=== PATIENT | female | born 1960 | race Caucasian/White ===

== ENCOUNTER 2020-10-14 09:17 | Outpatient (REF) | payer BC, SELFPAY ==
--- NOTE | ~2020-10-14 | XR_ITS ---
EXAMINATION: XR foot LT min 3V, XR foot RT min 3V CLINICAL INFORMATION: Rheumatoid arthritis. COMPARISON: None. TECHNIQUE: AP, lateral and oblique views of each foot. FINDINGS: Left foot: Joint spaces are maintained. No erosions are demonstrated. There is a small benign exostosis on the medial aspect of the distal phalanx the great toe. Bone density is normal. No acute abnormality. Right foot: Mild degenerative changes are present at the first metatarsal phalangeal joint. Joint spaces are otherwise well-maintained. No erosions. A small benign exostosis is present on the medial aspect of the distal phalanx of the great toe. No acute abnormality. XR/XR foot RT min 3V IMPRESSION: No erosive changes. Mild degenerative changes at the right first metatarsal phalangeal joint. Small exostoses of the distal phalanges of the great toes.
--- NOTE | ~2020-10-14 | XR_ITS ---
EXAMINATION: XR foot LT min 3V, XR foot RT min 3V CLINICAL INFORMATION: Rheumatoid arthritis. COMPARISON: None. TECHNIQUE: AP, lateral and oblique views of each foot. FINDINGS: Left foot: Joint spaces are maintained. No erosions are demonstrated. There is a small benign exostosis on the medial aspect of the distal phalanx the great toe. Bone density is normal. No acute abnormality. Right foot: Mild degenerative changes are present at the first metatarsal phalangeal joint. Joint spaces are otherwise well-maintained. No erosions. A small benign exostosis is present on the medial aspect of the distal phalanx of the great toe. No acute abnormality. XR/XR foot LT min 3V IMPRESSION: No erosive changes. Mild degenerative changes at the right first metatarsal phalangeal joint. Small exostoses of the distal phalanges of the great toes.
[2020-10-14 09:48] LABS: MANUAL DIFF FLAG NO
[2020-10-14 10:05] LABS: Basophils Percent Auto 0.5 % (0-2); Eosinophils Absolute Auto 0.3 X10*3/uL (0.0-0.4); Eosinophils Percent Auto 4.9 % (0-4); Imm Gran Abs Auto 0.02 X10*3/uL (0.00-0.03); Imm Gran Pct Auto 0.3 % (0.0-0.4); Lymphocytes Absolute Auto 1.7 X10*3/uL (1.2-4.9); Lymphocytes Percent Auto 28.2 % (20-40); Mean Corpuscular HGB Conc 32.5 g/dl (31.0-35.0); Mean Corpuscular Hemoglobin 28.9 pg (27.0-33.0); Mean Corpuscular Volume 88.9 fL (80-98); Mean Platelet Volume 10.7 fL (9.4-12.3); Monocytes Absolute Auto 0.6 X10*3/uL (0.1-1.2); Monocytes Percent Auto 9.6 % (2-11); Neutrophils Absolute Auto 3.5 X10*3/uL (2.0-8.3); Neutrophils Percent Auto 56.5 % (45-73); Platelet Count 269 X10*3/uL (160-400); Red Cell Distribution Width 12.6 % (11.0-16.0); White Blood Count 6.1 X10*3/uL (4.8-10.8)
[2020-10-14 10:23] LABS: Alanine Aminotransferase 20 U/L (0-31); Albumin Level 4.6 g/dL (3.5-5.0); Alkaline Phosphatase 71 U/L (39-117); Anion Gap 14 (12-20); Aspartate Amino Transferase 21 U/L (5-31); Bilirubin Total 0.6 mg/dL (0.0-1.0); Blood Urea Nitrogen 17 mg/dL (9-16); C Reactive Protein 0.03 mg/dL (< or = 0.50); Calcium 10.2 mg/dL (8.4-10.2); Carbon Dioxide 28 mmol/L (22-29); Chloride 105 mmol/L (96-108); Cholesterol 225 mg/dL; Estimated Glomerular Filt Rate > 60; Glucose Random 82 mg/dL (60-115); HDL Cholesterol 89 mg/dL; LDL Cholesterol Calculated 125 mg/dl; Potassium 4.8 mmol/L (3.3-5.1); Rheumatoid Factor < 15.0 IU/mL (<15.0); Sodium 142 mmol/L (135-145); Total Protein 7.3 g/dL (6.5-8.0); Triglycerides 58 mg/dL
[2020-10-14 10:33] LABS: Thyroid Stimulating Hormone 0.88 uIU/mL (0.32-4.0); Vitamin D 25-OH Total 23.1 ng/mL (>30)
[2020-10-14 10:52] LABS: Erythrocyte Sedimentation Rate 7 MM/HR (0-20)
[2020-10-16 08:41] LABS: Folate 18.3 ng/mL (> or = 4.0); Vitamin B12 407 pg/mL (200-900)
[2020-10-17 13:42] LABS: ANA Pattern 2 Nuclear, Homogeneous; Anti Nuclear Antibody Pattern Nuclear, Centromere; Anti Nuclear Antibody Screen POSITIVE (NEGATIVE)
== END 2020-10-14 09:18 | disposition home or self-care (01) ==
LOC: HO.LAB 09:17
PROVIDERS: PCP Internal Medicine; Visit Provider Internal Medicine
DX: K21.9 Gastro-esophageal reflux disease without esophagitis (principal); M79.89 Other specified soft tissue disorders; R79.89 Other specified abnormal findings of blood chemistry; M85.89 Other specified disorders of bone density and structure, multiple sites
CPT/HCPCS: 36415; 73630; 80053; 80061; 82306; 82607; 82746; 84443; 85025; 85652; 86038; 86039; 86140; 86431

== ENCOUNTER → 2020-10-25 11:23 | Outpatient (BNVA) | payer BC, SELFPAY | PROVIDERS: PCP Internal Medicine; Visit Provider Student in an Organized Health Care Education/Training Program ==

== ENCOUNTER 2020-10-27 13:01 | Outpatient (REF) | payer BC, SELFPAY ==
[2020-10-27 13:30] LABS: MANUAL DIFF FLAG NO
[2020-10-27 13:36] LABS: Basophils Percent Auto 0.3 % (0-2); Eosinophils Absolute Auto 0.1 X10*3/uL (0.0-0.4); Eosinophils Percent Auto 1.8 % (0-4); Hematocrit 38.3 % (37-47); Hemoglobin 12.3 g/dl (12.0-16.0); Imm Gran Abs Auto 0.02 X10*3/uL (0.00-0.03); Imm Gran Pct Auto 0.3 % (0.0-0.4); Lymphocytes Percent Auto 25.8 % (20-40); Mean Corpuscular HGB Conc 32.1 g/dl (31.0-35.0); Mean Corpuscular Hemoglobin 28.7 pg (27.0-33.0); Mean Corpuscular Volume 89.3 fL (80-98); Mean Platelet Volume 10.4 fL (9.4-12.3); Monocytes Absolute Auto 0.5 X10*3/uL (0.1-1.2); Monocytes Percent Auto 5.9 % (2-11); Neutrophils Absolute Auto 5.1 X10*3/uL (2.0-8.3); Neutrophils Percent Auto 65.9 % (45-73); Platelet Count 260 X10*3/uL (160-400); Red Blood Count 4.29 X10*6/uL (4.20-5.50); Red Cell Distribution Width 12.6 % (11.0-16.0); White Blood Count 7.7 X10*3/uL (4.8-10.8)
[2020-10-27 13:52] LABS: Alanine Aminotransferase 17 U/L (0-31); Albumin Level 4.6 g/dL (3.5-5.0); Alkaline Phosphatase 64 U/L (39-117); Anion Gap 13 (12-20); Aspartate Amino Transferase 18 U/L (5-31); Bilirubin Total 0.7 mg/dL (0.0-1.0); Blood Urea Nitrogen 11 mg/dL (9-16); C Reactive Protein 0.02 mg/dL (< or = 0.50); Calcium 9.8 mg/dL (8.4-10.2); Carbon Dioxide 27 mmol/L (22-29); Chloride 101 mmol/L (96-108); Estimated Glomerular Filt Rate > 60; Glucose Random 142 mg/dL (60-115); Potassium 4.1 mmol/L (3.3-5.1); Sodium 137 mmol/L (135-145); Total Protein 7.3 g/dL (6.5-8.0)
[2020-10-27 14:33] LABS: Erythrocyte Sedimentation Rate 4 MM/HR (0-20)
[2020-10-27 15:54] LABS: Glucose Urine UA NEG (NEG); Leukocyte Esterase Urine NEG (NEG); Nitrite Urine NEG (NEG); Specific Gravity - Urine <= 1.005 (1.005-1.025); Urine Blood 2+ (NEG); Urine Ketones NEG (NEG); Urine Protein NEG (NEG-TRACE)
[2020-10-27 15:59] LABS: Appearance Urine CLEAR; Color Urine YELLOW
[2020-10-27 16:17] LABS: Urine Talc Crystals TRACE /LPF; WBC Urine 0-2 /HPF (0-4)
[2020-10-28 07:06] LABS: Thyroglobulin Antibodies <1 IU/mL (< or = 1); Thyroid Peroxidase Antibodies 2 IU/mL (<9)
[2020-10-31 10:42] LABS: Complement C3 71 mg/dL (83-193)
[2020-10-31 16:02] LABS: Anti DNA DS Antibody 1 IU/mL; Antibody to SS-A Antigen <1.0 NEG AI (<1.0 NEG); Antibody to SS-B Antigen <1.0 NEG AI (<1.0 NEG); PTT (LAC) Screen 26 sec (< OR = 40); SM/Ribonucleoprotein Ab <1.0 NEG AI (<1.0 NEG); Scleroderma 70 Antibody <1.0 NEG AI (<1.0 NEG); Smith Protein <1.0 NEG AI (<1.0 NEG)
[2020-11-02 16:57] LABS: Cyclic Citrullinated Peptide <16 UNITS
== END 2020-10-27 13:02 | disposition home or self-care (01) ==
LOC: HO.LAB 13:01
PROVIDERS: PCP Internal Medicine; Visit Provider Student in an Organized Health Care Education/Training Program
DX: R76.8 Other specified abnormal immunological findings in serum (principal)
CPT/HCPCS: 36415; 80053; 81001; 85025; 85597; 85613; 85652; 85730; 86140; 86160; 86200; 86225; 86235; 86376; 86800

== ENCOUNTER → 2020-11-14 15:18 | Outpatient (BNVA) | payer BC, SELFPAY | PROVIDERS: PCP Internal Medicine; Visit Provider Student in an Organized Health Care Education/Training Program ==

== ENCOUNTER 2020-11-21 12:57 | Outpatient (REF) | payer BC, SELFPAY ==
--- NOTE | ~2020-11-21 | MM_ITS ---
EXAMINATION: BONE DENSITOMETRY CLINICAL INDICATION: Other specified disorders of bone density and structure. COMPARISON: Previous BD dated 09/26/2017 and baseline BD dated 09/21/2010. TECHNIQUE: Using a [employer] DXA System (software version: 13.1) manufactured by [employer], dual-energy x-ray absorptiometry was performed of the lumbar spine and left hip. The images are of good technical quality. Summary results are attached. FINDINGS: AP SPINE L1-L4: Current: BMD 1.035 g/cm2, Z-score 0.6, T-score -1.2, osteopenia, 0.8% increase from previous, 10.2% decrease from baseline (<5% change is not significant). Prior: BMD 1.027 g/cm2. Baseline: BMD 1.152 g/cm2. LEFT FEMUR, NECK: Current: BMD 0.698 g/cm2, Z-score -0.8, T-score -2.4, osteopenia. Prior: BMD 0.720 g/cm2. Baseline: BMD 0.903 g/cm2. LEFT FEMUR, TOTAL: Current: BMD 0.809 g/cm2, Z-score -0.2, T-score -1.6, osteopenia, 5.7% decrease from previous, 17.4% decrease from baseline (<5% change is not significant). Prior: BMD 0.858 g/cm2. Baseline: BMD 0.980 g/cm2. IDENTIFIED RISK FACTORS: Low calcium intake, family history (parental hip fracture), menopause. HISTORY OF FRACTURE: None listed. MEDICATIONS: Calcium supplements or multivitamin, vitamin D. MM/XR DEXA axial skeleton IMPRESSION: 1. DIAGNOSIS: Osteopenia based on the lowest T-score value of -2.4 in the femoral neck applying World Health Organization criteria. 2. 10-YEAR FRACTURE RISK PREDICTION, FRAX: Major osteoporotic fracture (clinical spine, forearm, hip or shoulder) 19.9%. Hip fracture 2.3%. 3. Treatment Recommendations: NOF guidelines recommend consideration for treatment in postmenopausal women and men age 50 and older presenting with the following: -A hip or vertebral (clinical or morphometric) fracture. -T-score less than or equal to -2.5 at the femoral neck or spine after appropriate evaluation to exclude secondary causes. -Low bone mass at the hip or spine and a 10-year fracture probability by FRAX of greater than or equal to 3% for hip fracture or greater than or equal to 20% for major osteoporotic fracture based on the [place] adapted WHO algorithm. 4. Other Recommendations: All treatment decisions require clinical judgment and consideration of individual patient factors, including patient preferences, comorbidities, previous drug use, risk factors not captured in the FRAX model (e.g. frailty, falls, vitamin D deficiency, increased bone turnover, interval significant decline in bone density) and possible under or overestimation of fracture risk by FRAX. Additional medical evaluation for secondary cause of low bone mineral density may be appropriate. FUTURE SCAN RECOMMENDATION: People with diagnosed cases of osteoporosis or at high risk for fracture should have regular bone mineral density tests. For patients eligible for Medicare, routine testing is allowed once every 2 years. The testing frequency can be increased to one year for patients who have rapidly progressing disease, those who are receiving or discontinuing medical therapy to restore bone mass, or have additional risk factors.
--- NOTE | ~2020-11-21 | MM_ITS ---
EXAMINATION: MM SCREENING DIGITAL BREAST TOMOSYNTHESIS, BILATERAL CLINICAL INFORMATION: Screening. Asymptomatic. The lifetime risk of breast cancer based on the Tyrer-Cuzick Model is 5%. COMPARISON: Mammography: 04/27/2019, 09/26/2017, 07/15/2014 TECHNIQUE: Digital breast tomosynthesis is performed in both the craniocaudal and mediolateral oblique views along with computer-aided detection (CAD). Synthesized 2D images are generated from the tomosynthesis. FINDINGS: There are scattered areas of fibroglandular density (ACR BI-RADS breast composition Category b). There are no significant masses, abnormal calcifications, or other abnormalities. Parenchymal pattern is similar to prior exams. No significant changes. MM/MM tomosynthesis screening BI IMPRESSION: No mammographic evidence of malignancy. ASSESSMENT: BI-RADS 1: Negative RECOMMENDATION: Routine annual mammography screening. This patient's information was entered into a reminder system with a target due date for their next mammogram.
== END 2020-11-21 12:58 | disposition home or self-care (01) ==
LOC: HO.MAMMO 12:57
PROVIDERS: Visit Provider Internal Medicine
DX: Z12.31 Encounter for screening mammogram for malignant neoplasm of breast (principal); Z13.820 Encounter for screening for osteoporosis; M85.80 Other specified disorders of bone density and structure, unspecified site; E58 Dietary calcium deficiency; Z78.0 Asymptomatic menopausal state
CPT/HCPCS: 77063; 77067; 77080

== ENCOUNTER → 2021-01-08 11:26 | Outpatient (BNVA) | payer BC, SELFPAY | PROVIDERS: PCP Internal Medicine; Referring Provider Internal Medicine; Visit Provider Nurse Practitioner ==

== ENCOUNTER 2021-01-10 17:14 | Outpatient (REF) | payer BC, SELFPAY ==
--- NOTE | ~2021-01-10 | XR_ITS ---
EXAMINATION: XR THORACOLUMBAR SPINE CLINICAL INFORMATION: Dorsalgia COMPARISON: None TECHNIQUE: 3 views of the thoracic spine FINDINGS: No acute visible fracture or dislocation. Slight dextrocurvature of the midthoracic spine. Mild multilevel degenerative changes with disc space narrowing, osteophyte formation, facet arthropathy. Vertebral body heights and disc spaces are otherwise maintained. Posterior elements are intact. Paraspinal soft tissues are unremarkable. Visualized portions of the chest are unremarkable. XR/XR thoracic spine 2V IMPRESSION: 1. No acute visible fracture or dislocation. 2. Slight dextrocurvature of the midthoracic spine. 3. Mild multilevel degenerative changes.
== END 2021-01-10 17:15 | disposition home or self-care (01) ==
LOC: HO.XRAY 17:14
PROVIDERS: PCP Internal Medicine; Visit Provider Nurse Practitioner
DX: K82.8 Other specified diseases of gallbladder (principal); M54.9 Dorsalgia, unspecified
CPT/HCPCS: 72070

== ENCOUNTER 2021-02-15 07:49 | Outpatient (REF) | payer BC, SELFPAY ==
--- NOTE | ~2021-02-15 | XR_ITS ---
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 COMPARISON: Chest CT November 07, 2017 TECHNIQUE: 2 views of the chest were obtained. FINDINGS: Cardiac silhouette is normal in size. The lungs are well aerated. Minimal biapical architectural distortion. There is no lobar consolidation. No pleural effusion or pneumothorax. Mild degenerative changes of the spine. XR/XR chest 2V IMPRESSION: No acute pulmonary pathology.
[2021-02-15 09:06] LABS: Blood Urea Nitrogen 16 mg/dL (9-16); Estimated Glomerular Filt Rate > 60
== END 2021-02-15 07:50 | disposition home or self-care (01) ==
LOC: HO.LAB 07:49
PROVIDERS: Absent Provider Family Medicine; PCP Internal Medicine; Visit Provider Urology
DX: M54.9 Dorsalgia, unspecified (principal); R31.9 Hematuria, unspecified
CPT/HCPCS: 36415; 71046; 82565; 84520

== ENCOUNTER → 2021-02-20 09:27 | Outpatient (BNVA) | payer BC, SELFPAY | PROVIDERS: PCP Internal Medicine; Referring Provider Internal Medicine; Visit Provider Nurse Practitioner ==

== ENCOUNTER 2021-03-29 06:48 | Outpatient (REF) | payer BC, SELFPAY ==
[2021-03-29 07:02] LABS: MANUAL DIFF FLAG NO
[2021-03-29 07:24] LABS: Basophils Percent Auto 0.5 % (0-2); Eosinophils Absolute Auto 0.4 X10*3/uL (0.0-0.4); Eosinophils Percent Auto 9.3 % (0-4); Hematocrit 37.8 % (37.0-47.0); Hemoglobin 12.1 g/dl (12.0-16.0); Imm Gran Abs Auto 0.01 X10*3/uL (0.00-0.03); Imm Gran Pct Auto 0.2 % (0.0-0.4); Lymphocytes Absolute Auto 1.6 X10*3/uL (1.2-4.9); Mean Corpuscular Hemoglobin 28.4 pg (27.0-33.0); Mean Corpuscular Volume 88.7 fL (80.0-98.0); Mean Platelet Volume 10.2 fL (9.4-12.3); Monocytes Absolute Auto 0.8 X10*3/uL (0.1-1.2); Monocytes Percent Auto 18.1 % (2-11); Neutrophils Absolute Auto 1.5 x10*3/uL (2.0-8.3); Neutrophils Percent Auto 34.9 % (45-73); Platelet Count 256 X10*3/uL (160-400); Red Blood Count 4.26 X10*6/uL (4.20-5.50); Red Cell Distribution Width 12.4 % (11.0-16.0); White Blood Count 4.3 X10*3/uL (4.8-10.8)
[2021-03-29 08:01] LABS: Alanine Aminotransferase 24 U/L (0-31); Albumin Level 4.3 g/dL (3.5-5.0); Alkaline Phosphatase 74 U/L (39-117); Anion Gap 12 (12-20); Aspartate Amino Transferase 25 U/L (5-31); Bilirubin Total 0.6 mg/dL (0.0-1.0); Blood Urea Nitrogen 14 mg/dL (9-16); Calcium 10.2 mg/dL (8.4-10.2); Carbon Dioxide 28 mmol/L (22-29); Chloride 105 mmol/L (96-108); Cholesterol 200 mg/dL; Estimated Average Glucose 108 mg/dL; Estimated Glomerular Filt Rate > 60; Glucose Random 89 mg/dL (60-115); HDL Cholesterol 75 mg/dL; Hemoglobin A1c % 5.4 %; LDL Cholesterol Calculated 111 mg/dl; Potassium 4.2 mmol/L (3.3-5.1); Sodium 141 mmol/L (135-145); Triglycerides 70 mg/dL
[2021-03-29 08:12] LABS: Vitamin D 25-OH Total 43.1 ng/mL (>30)
[2021-03-29 08:34] LABS: Appearance Urine CLEAR; Color Urine YELLOW; Glucose Urine UA NEG (NEG); Leukocyte Esterase Urine 1+ (NEG); Nitrite Urine NEG (NEG); PH 5.5 (5.0-8.0); Urine Blood TRACE (NEG); Urine Ketones NEG (NEG); Urine Protein NEG (NEG-TRACE)
[2021-03-29 08:53] LABS: RBC Urine 0 /HPF (0); Squamous Epithelial Cell Urine TRACE /LPF; WBC Urine 0-2 /HPF (0-4)
[2021-03-29 08:55] LABS: Folate 17.7 ng/mL (> or = 4.0); Vitamin B12 413 pg/mL (200-900)
== END 2021-03-29 06:49 | disposition home or self-care (01) ==
LOC: HO.LAB 06:48
PROVIDERS: Student in an Organized Health Care Education/Training Program; PCP Internal Medicine; Visit Provider Internal Medicine
DX: K21.9 Gastro-esophageal reflux disease without esophagitis (principal); E78.00 Pure hypercholesterolemia, unspecified
CPT/HCPCS: 36415; 80053; 80061; 81001; 82306; 82607; 82746; 83036; 84439; 84443; 85025

== ENCOUNTER → 2021-04-03 11:28 | Outpatient (BNVA) | payer BC, SELFPAY | PROVIDERS: PCP Internal Medicine; Referring Provider Internal Medicine; Visit Provider Nurse Practitioner ==

== ENCOUNTER 2021-05-24 06:57 | Outpatient (REF) | payer BC, SELFPAY ==
[2021-05-24 07:10] LABS: MANUAL DIFF FLAG NO
[2021-05-24 07:26] LABS: Basophils Percent Auto 0.4 % (0-2); Eosinophils Absolute Auto 0.3 X10*3/uL (0.0-0.4); Eosinophils Percent Auto 4.1 % (0-4); Hematocrit 40.6 % (37.0-47.0); Hemoglobin 12.9 g/dl (12.0-16.0); Imm Gran Abs Auto 0.01 X10*3/uL (0.00-0.03); Imm Gran Pct Auto 0.1 % (0.0-0.4); Lymphocytes Absolute Auto 2.5 X10*3/uL (1.2-4.9); Lymphocytes Percent Auto 36.4 % (20-40); Mean Corpuscular HGB Conc 31.8 g/dl (31.0-35.0); Mean Corpuscular Hemoglobin 28.3 pg (27.0-33.0); Mean Platelet Volume 10.1 fL (9.4-12.3); Monocytes Absolute Auto 0.8 X10*3/uL (0.1-1.2); Monocytes Percent Auto 12.1 % (2-11); Neutrophils Absolute Auto 3.2 x10*3/uL (2.0-8.3); Neutrophils Percent Auto 46.9 % (45-73); Platelet Count 269 X10*3/uL (160-400); Red Blood Count 4.56 X10*6/uL (4.20-5.50); Red Cell Distribution Width 12.5 % (11.0-16.0); White Blood Count 6.8 X10*3/uL (4.8-10.8)
== END 2021-05-24 06:58 | disposition home or self-care (01) ==
LOC: HO.LAB 06:57
PROVIDERS: PCP Internal Medicine; Visit Provider Internal Medicine
DX: F41.1 Generalized anxiety disorder (principal)
CPT/HCPCS: 36415; 85025

== ENCOUNTER 2021-06-04 07:39 | Outpatient (REF) | payer BC, SELFPAY ==
--- NOTE | ~2021-06-04 | US_ITS ---
EXAMINATION: US ABDOMEN COMPLETE CLINICAL INFORMATION: Epigastric pain. COMPARISON: CT abdomen pelvis 06/13/2010 TECHNIQUE: Real-time imaging of the abdominal viscera. FINDINGS: PANCREAS: Normal. ABDOMINAL AORTA: The proximal, mid, and distal segments are normal in caliber. INFERIOR VENA CAVA: Visualized portions are normal. LIVER: The liver is normal in size. The liver contour is normal. Parenchymal echogenicity is normal. No focal hepatic lesion. There is no intrahepatic biliary duct dilatation seen. GALLBLADDER: Normal. The gallbladder is physiologically distended without evidence of stones, sludge, polyps, wall thickening or pericholecystic fluid. COMMON BILE DUCT: Normal in caliber measuring 0.2 cm in diameter. RIGHT KIDNEY: Normal. No hydronephrosis. No renal calculi or focal parenchymal lesions. The kidney measures 9.3 cm in maximum dimension. LEFT KIDNEY: Normal. No hydronephrosis. No renal calculi or focal parenchymal lesions. The kidney measures 9.8 cm in maximum dimension. SPLEEN: Normal. The spleen measures 8.2 cm in maximum dimension. A 1.4 cm accessory splenule is noted. FREE FLUID: None. US/US abdomen complete IMPRESSION: No findings to explain symptoms of epigastric pain. No cholelithiasis or evidence of acute cholecystitis. Incidental note is made of an accessory splenule.
== END 2021-06-04 07:40 | disposition home or self-care (01) ==
LOC: HO.US 07:39
PROVIDERS: Visit Provider Nurse Practitioner
DX: R10.13 Epigastric pain (principal)
CPT/HCPCS: 76700

== ENCOUNTER → 2021-06-07 07:51 | Outpatient (REF) | payer BC, SELFPAY ==
--- NOTE | ~2021-06-07 | NM_ITS ---
EXAMINATION: NM BILIARY TRACT WITH ORAL FATTY MEAL CLINICAL INFORMATION: Epigastric pain for 3 years. COMPARISON: No previous biliary scan is available for comparison. Abdominal ultrasound dated 06/04/2021 is available for comparison. TECHNIQUE: Serial gamma scintillation camera images were obtained over the abdomen for a total observation period of 125 minutes following the intravenous administration of 5 mCi Tc-99m Mebrofenin. FINDINGS: There is good concentration of activity in the liver by 5 minutes post injection. Biliary activity is visualized by 12 minutes. The gallbladder is well visualized by 25 minutes. Small bowel is well visualized by 30 minutes. At 60 minutes post Mebrofenin injection, 8 ounces of Ensure-plus Brand was administered orally and an additional 60 minutes of images were obtained. There is good emptying of the gallbladder following ingestion of the fatty meal. At the end of the study there is good clearance of activity from the liver and visualization of diffuse small bowel activity. The calculated gallbladder ejection fraction is 46% (normal gallbladder ejection fraction using Ensure supplement orally is greater than 33%). NM/NM hepatobiliary wo pharm IMPRESSION: Visualization of the gallbladder is evidence of a patent cystic duct and strong evidence against the diagnosis of acute cholecystitis. The common bile duct is patent. Gallbladder emptying and ejection fraction are normal. Liver function appears normal.
== END ==
LOC: HO.NUCMED 07:51
PROVIDERS: Visit Provider Nurse Practitioner
DX: R10.13 Epigastric pain (principal)
CPT/HCPCS: 78226; A9537

== ENCOUNTER 2021-06-14 07:07 | Outpatient (REF) | payer BC, SELFPAY ==
[2021-06-19 13:36] LABS: Mitochondrial Antibodies NEGATIVE (NEGATIVE)
[2021-06-19 14:26] LABS: Smooth Muscle Antibody <20 U (<20)
== END 2021-06-14 07:08 | disposition home or self-care (01) ==
LOC: HO.LAB 07:07
PROVIDERS: PCP Internal Medicine; Visit Provider Nurse Practitioner
DX: R10.13 Epigastric pain (principal); K82.8 Other specified diseases of gallbladder; K21.9 Gastro-esophageal reflux disease without esophagitis; R76.8 Other specified abnormal immunological findings in serum
CPT/HCPCS: 36415; 86015; 86255; 86256

== ENCOUNTER 2021-07-24 15:48 | Outpatient (REF) | payer BC, SELFPAY ==
[2021-07-24 18:30] LABS: Appearance Urine CLOUDY; Color Urine YELLOW; Glucose Urine UA NEG (NEG); Leukocyte Esterase Urine 3+ (NEG); Nitrite Urine POS (NEG); PH 5.5 (5.0-8.0); Urine Blood 3+ (NEG); Urine Ketones NEG (NEG); Urine Protein TRACE MG/DL (NEG-TRACE)
[2021-07-24 19:04] LABS: Bacteria Urine 3+ /LPF; Mucus Urine 2+ /LPF; Squamous Epithelial Cell Urine 1+ /LPF; WBC Clumps Urine NOTED
== END 2021-07-24 15:49 | disposition home or self-care (01) ==
LOC: HO.LAB 15:48
PROVIDERS: Visit Provider Family Medicine
DX: Z00.00 Encounter for general adult medical examination without abnormal findings (principal); R30.0 Dysuria; A49.01 Methicillin susceptible Staphylococcus aureus infection, unspecified site; Z16.11 Resistance to penicillins; Z16.20 Resistance to unspecified antibiotic
CPT/HCPCS: 81001; 87086; 87088; 87186

== ENCOUNTER 2021-07-25 11:49 | Outpatient (REF) | payer BC, SELFPAY ==
[2021-07-25 13:40] LABS: Blood Urea Nitrogen 10 mg/dL (9-16); Estimated Glomerular Filt Rate 54
== END 2021-07-25 11:50 | disposition home or self-care (01) ==
LOC: HO.LAB 11:49
PROVIDERS: PCP Internal Medicine; Visit Provider Urology
DX: R31.29 Other microscopic hematuria (principal)
CPT/HCPCS: 36415; 82565; 84520

== ENCOUNTER 2021-07-30 08:45 | Outpatient (REF) | payer BC, SELFPAY ==
--- NOTE | ~2021-07-30 | CT_ITS ---
EXAMINATION: CT ABDOMEN AND PELVIS WITHOUT AND WITH CONTRAST CLINICAL INFORMATION: Hematuria COMPARISON: Previous abdominal ultrasound May 2021. TECHNIQUE: Multidetector volumetric imaging was performed of the abdomen and pelvis before and after the IV administration of 85 mL of Omnipaque 300 intravenous contrast. Sagittal and coronal reformatted images were obtained on the technologist's workstation. This CT examination was performed using dose optimization techniques as appropriate, variously including the following: *Automated exposure control *Adjustment of mA and/or kV according to patient size (this includes techniques or standardized protocols for targeted exams where dose is matched to indication/reason for exam; i.e. extremities or head) *Use of iterative reconstruction technique DLP: 374 mGy-cm FINDINGS: LUNG BASES: The visualized lung bases are unremarkable. LIVER, GALLBLADDER, AND BILIARY TREE: The liver is normal in size, shape, and attenuation. There is a small subcentimeter low-attenuation lesion in the central liver resemble coronal reconstructed image 15 series 10. This probably represents a small cyst. No other focal liver lesion. No biliary ductal dilatation is present. The gallbladder is unremarkable with no evidence of radiopaque gallstones, gallbladder wall thickening, or obvious pericholecystic inflammatory changes. PANCREAS: Unremarkable. SPLEEN: Unremarkable. ADRENAL GLANDS: Unremarkable. KIDNEYS AND URETERS: The kidneys are normal in size, shape, and attenuation. No hydronephrosis, hydroureter, or calculi seen. No perinephric stranding. BLADDER: Unremarkable. GASTROINTESTINAL TRACT: There is stool throughout the colon. The small and large bowel are otherwise unremarkable. The appendix is not seen. ABDOMINAL WALL: No significant hernia is appreciated. LYMPH NODES: Normal. VASCULAR: Unremarkable. PELVIC VISCERA: Unremarkable. OSSEOUS STRUCTURES: There is degenerative disc disease at L5-S1. CT/CT abdomen pelvis wo/w con IMPRESSION: Normal CT IVP. Probable small liver cyst. Stool throughout the colon suggestive of constipation. Fleischner guidelines were followed.
[2021-07-30] MEDS: iohexoL 350 MG/ML 100 ML INFUS..BTL IV (09:44)
== END 2021-07-30 08:46 | disposition home or self-care (01) ==
LOC: HO.CT 08:45
PROVIDERS: Visit Provider Urology
DX: R31.9 Hematuria, unspecified (principal)
CPT/HCPCS: 74178; Q9967

== ENCOUNTER 2021-07-31 15:21 | Outpatient (REF) | payer BC, SELFPAY ==
[2021-07-31 15:29] LABS: MANUAL DIFF FLAG NO
[2021-07-31 16:05] LABS: Basophils Percent Auto 0.6 % (0-2); Eosinophils Absolute Auto 0.2 X10*3/uL (0.0-0.4); Eosinophils Percent Auto 3.1 % (0-4); Hematocrit 38.7 % (37.0-47.0); Hemoglobin 12.3 g/dl (12.0-16.0); Imm Gran Abs Auto 0.02 X10*3/uL (0.00-0.03); Imm Gran Pct Auto 0.3 % (0.0-0.4); Lymphocytes Absolute Auto 2.4 X10*3/uL (1.2-4.9); Lymphocytes Percent Auto 33.4 % (20-40); Mean Corpuscular HGB Conc 31.8 g/dl (31.0-35.0); Mean Corpuscular Hemoglobin 28.9 pg (27.0-33.0); Mean Corpuscular Volume 90.8 fL (80.0-98.0); Mean Platelet Volume 10.9 fL (9.4-12.3); Monocytes Absolute Auto 0.7 X10*3/uL (0.1-1.2); Monocytes Percent Auto 10.4 % (2-11); Neutrophils Absolute Auto 3.7 x10*3/uL (2.0-8.3); Neutrophils Percent Auto 52.2 % (45-73); Platelet Count 300 X10*3/uL (160-400); Red Blood Count 4.26 X10*6/uL (4.20-5.50); Red Cell Distribution Width 13.2 % (11.0-16.0); White Blood Count 7.1 X10*3/uL (4.8-10.8)
[2021-07-31 16:30] LABS: Alanine Aminotransferase 23 U/L (0-31); Albumin Level 4.6 g/dL (3.5-5.0); Alkaline Phosphatase 61 U/L (39-117); Anion Gap 13 (12-20); Aspartate Amino Transferase 18 U/L (5-31); Bilirubin Total 0.4 mg/dL (0.0-1.0); Blood Urea Nitrogen 14 mg/dL (9-16); Calcium 10.1 mg/dL (8.4-10.2); Carbon Dioxide 28 mmol/L (22-29); Chloride 99 mmol/L (96-108); Estimated Glomerular Filt Rate 58; Glucose Random 97 mg/dL (60-115); Potassium 4.8 mmol/L (3.3-5.1); Sodium 135 mmol/L (135-145); Total Protein 7.2 g/dL (6.5-8.0)
[2021-07-31 18:07] LABS: Appearance Urine CLEAR; Color Urine YELLOW; Glucose Urine UA NEG (NEG); Leukocyte Esterase Urine NEG (NEG); Nitrite Urine NEG (NEG); PH 5.5 (5.0-8.0); UACC Culture Trigger NO; Urine Blood 2+ (NEG); Urine Ketones NEG (NEG); Urine Protein NEG (NEG-TRACE)
[2021-07-31 18:30] LABS: RBC Urine 0-2 /HPF (0); Renal Epithelial Cells Urine 1+ /LPF; Squamous Epithelial Cell Urine 1+ /LPF; WBC Urine 0-2 /HPF (0-4)
== END 2021-07-31 15:22 | disposition home or self-care (01) ==
LOC: HO.LAB 15:21
PROVIDERS: PCP Internal Medicine; Visit Provider Nurse Practitioner Acute Care
DX: N28.9 Disorder of kidney and ureter, unspecified (principal)
CPT/HCPCS: 36415; 80053; 81001; 85025

== ENCOUNTER 2021-08-07 16:48 | Outpatient (REF) | payer BC, SELFPAY ==
[2021-08-08 21:16] LABS: Scleroderma 70 Antibody <1.0 NEG AI (<1.0 NEG)
== END 2021-08-07 16:49 | disposition home or self-care (01) ==
LOC: HO.LAB 16:48
PROVIDERS: PCP Internal Medicine; Visit Provider Internal Medicine
DX: M34.1 CR(E)ST syndrome (principal)
CPT/HCPCS: 36415; 83520; 86235

== ENCOUNTER → 2021-08-09 07:13 | Outpatient (BNVA) | payer BC, SELFPAY | PROVIDERS: PCP Internal Medicine; Referring Provider Internal Medicine; Visit Provider Nurse Practitioner | DX: Z13.89 Encounter for screening for other disorder (principal) ==

== ENCOUNTER 2023-08-25 12:27 | Outpatient (AMB) | payer MEDICARE, SELFPAY ==
[2023-08-25 11:38] VITALS: BP 98/72; PULSE 78; O2SAT 100; BMI 21.2
--- NOTE | 2023-08-25 11:38 | AM.OFFVISMDC ---
Intake Vital Signs 08/25/23 11:38 Height 5 ft 2 in Weight 116 lb BMI 21.2 BP 98/72 Blood Pressure Location Lt brachial Position Sitting Pulse 78 Pulse Source Pulse Oximeter Pulse Oximetry (%) 100 Oxygen Delivery Method Room Air Intake Visit Reasons: AWV Rescue Instructor Required: No Allergies No Known Allergies Allergy (Verified 08/25/23 12:34) Medication List - Last Reconciled 08/25/23 by Ayla Manzano MD calcium citrate-vitamin D3 315 mg-6.25 mcg (250 unit) (Citracal + Vitamin D Maximum) 1 tab PO DAILY HPI AWV HPI Details 63-year-old female with gastroesophageal reflux disease, generalized anxiety disorder last seen last year having an NIKO positive test and being followed up by Rheumatology. Patient also has a history of pericarditis. Patient's colonoscopy is up-to-date in 2018 had any EGD in 2018 also for esophageal stricture. Review of the chart had blood work done in November 2022 normal sodium normal potassium creatinine of 0.9 blood sugar is 106 normal calcium., decline pneumonia vaccine!!! decline counselling and therapy [facility] Medical History (Updated 08/25/23 @ 19:24 by Ayla Manzano MD) Back pain Dysuria Sinusitis Anxiety UTI (urinary tract infection) Kidney function abnormal Abdominal cramping NIKO positive Hiatal hernia GERD (gastroesophageal reflux disease) Surgical History Hx of colonoscopy History of esophagogastroduodenoscopy (EGD) History of myomectomy Status post hysteroscopic polypectomy Family History Father Hypertension Mother Hypertension Paternal Grandmother Stroke Daughter Healthy female Social History Housing: House Alcohol intake: never Patient Tobacco Use Status: Never used Tobacco e-Cigarette/Vaping Use: Never Used Second Hand Smoke Exposure: No service: No Current occupational status: employed Current occupational exposures/hazards: No Cognitive needs: No Hearing needs: No Vision needs: No Questionnaire Medicare Wellness Checkup [age] What gender do you identify with?: female During the past 4 weeks, how much have you been bothered by emotional problems such as feeling anxious, depressed, irritable, sad or downhearted, and blue?: slightly During the past 4 weeks, has your physical & emotional health limited your social activities with family, friends, neighbors, or groups?: not at all During the past 4 weeks, how much bodily pain have you generally had?: mild pain During the past 4 weeks, was someone available to help you if you needed & wanted help?: yes, as much as I wanted During the past 4 weeks, what was the hardest physical activity you could do for at least 2 minutes?: moderate Can you get to places out of walking distance without help? (For eg., can you travel alone on buses, taxis or drive your car?): Yes Can you go shopping for groceries or clothes without someone's help?: Yes Can you prepare your own meals?: Yes Can you do your housework without help?: Yes Because of any health problems, do you need the help of another person with your personal care needs such as eating, bathing, dressing or getting around the house?: No Can you handle your own money without help?: Yes During the past 4 weeks, how would you rate your health in general?: fair During the past 4 weeks how have things been going for you?: good & bad parts about equal Are you having difficulties driving your car?: no Do you always fasten your seat belt when you are in a car?: yes, usually During past 4 weeks, have you been bothered by the following: never: Sexual problems? and Problems using the telephone?, seldom: Falling or dizzy when standing up, Trouble eating well? and Teeth or denture problems? and sometimes: Tiredness or fatigue? Have you fallen 2 or more times in the past year?: No Are you afraid of falling?: No Are you a smoker?: no During the past 4 weeks, how many drinks of wine, beer, or other alcoholic beverages did you have?: no alcohol at all Do you exercise for about 20 minutes 3 or more times a week?: yes, most of the time Have you been given information to help with the following?: no: Hazards in your house that might hurt you? and no: Keeping track of your medications? How often do you have trouble taking medicines the way you have been told to take them?: I always take medicine as prescribed How confident are you that you can control & manage most of your health problems?: somewhat confident What is your race?: White PHQ-9 Over the last 2 weeks, how often have you been bothered by any of the following problems? 1. Little interest or pleasure in doing things: several days 2. Feeling down, depressed, or hopeless: several days 3. Trouble falling or staying asleep, or sleeping too much: several days 4. Feeling tired or having little energy: several days 5. Poor appetite or overeating: several days 6. Feeling bad about yourself - or that you are a failure or have let yourself or your family down: several days 7. Trouble concentrating on things, such as reading the newspaper or watching television: not at all 8. Moving or speaking so slowly that other people could have noticed. Or the opposite - being so fidgety or restless that you have been moving around a lot more than usual: not at all 9. Thoughts that you would be better off or of hurting yourself in some way: not at all Total score: 6 Depression Screening Interpretation: Negative Depression Screening Done: Yes 53011 - PHQ-9 Billing: Yes Source: Developed by Drs. Austen Long, Viviane Velez, Ja Moseley and colleagues, with an educational savannah from [employer]. Review of Systems Const Denies poor appetite and Denies weakness Eyes Denies no additional complaints ENT Reports Normal hearing present, Denies dizziness, Denies nasal congestion, Denies tinnitus and Denies sore throat Card Denies chest pain, Denies syncope, Denies rapid heart rate and Denies dyspnea Resp Denies cough and Denies dyspnea GI Denies change in stool character, Reports constipation, Denies diarrhea, Denies nausea and Denies vomiting Denies urinary frequency, Denies difficulty voiding and Denies dysuria Neuro Reports Normal hearing present, Denies confusion, Denies dizziness, Denies syncope and Denies weakness Psych Denies confusion Physical Exam Vital Signs: Last Vital Signs Pulse 78 08/25/23 11:38 BP 98/72 08/25/23 11:38 Pulse Ox 100 08/25/23 11:38 Oxygen Delivery Method Room Air 08/25/23 11:38 BMI result Body Mass Index 21.2 Const General: No confusion Orientation/consciousness: No confusion HEENT Head: Yes normocephalic Ears: external ears normal and TM's normal bilaterally Face and sinus: Yes normal facial exam Mouth: moist mucous membranes Throat: Yes tonsils normal Eyes Conjunctivae: conjunctivae normal Pupils: Equal, round and reactive pupils present and Pupil accommodation reflex normal Direct Ophthalmoscopy: normal light reflex Neck Neck: No lymphadenopathy Thyroid: Thyroid normal Chest Chest palpation & inspection: normal inspection of the chest Resp Effort & Inspection: normal respiratory effort and no audible wheezes Auscultation: clear to auscultation bilaterally, no crackles, no wheezes and lung sounds not diminished Cardio Rate: regular rate Rhythm: regular rhythm Peripheral pulses: radial pulses present and dorsalis pedis present GI Palpation (GI): no masses Auscultation: normal bowel sounds and normoactive bowel sounds Rectal Exam - Female: deferred Skin General skin exam: no rashes or lesions noted Rashes: no rashes Neuro General: No confusion Cranial nerves: Yes Equal, round and reactive pupils present and Yes Normal hearing present Cognition (Neuro): normal cognition Gait exam (Neuro): Normal gait present Motor exam (neuro): 5/5 motor strength present throughout Deep tendon reflexes (DTR's): Right brachioradialis reflex intensity grade: 2+, Left brachioradialis reflex intensity grade: 2+, Right patellar reflex intensity grade: 2+ and Left patellar reflex intensity grade: 2+ Extrem General: No edema Assessment & Plan Assessment & Plan (1) Annual physical exam: Code(s): Z00.00 - Encounter for general adult medical examination without abnormal findings Plan: Adequate sleep, keep active, keep well hydrated and eat healthy (2) Osteopenia: Comment: October 2020 osteopenia bone density Code(s): M85.80 - Other specified disorders of bone density and structure, unspecified site Qualifiers: Osteopenia location: unspecified Qualified Code(s): M85.80 - Other specified disorders of bone density and structure, unspecified site Plan: Patient is reminded about the bone density (3) Generalized anxiety disorder: Code(s): F41.1 - Generalized anxiety disorder Plan: Stable and declined any need for referrals (4) CREST (calcinosis, Raynaud's phenomenon, esophageal dysfunction, sclerodactyly, telangiectasia): Comment: AUDRA Code(s): M34.1 - CR(E)ST syndrome Plan: Continue to follow-up with Rheumatology (5) Cervical cancer screening: Comment: Dr. Roland Gillis [facility] Code(s): Z12.4 - Encounter for screening for malignant neoplasm of cervix Plan: Reminded about gynecological evaluation. Orders: Orders MM tomosynthesis screening BI Today Z12.31 - Encounter for screening mammogram for malignant neoplasm of breast Vitamin B12 and Folate Today Z00.00 - Encounter for general adult medical examination without abnormal findings Complete Blood Count Auto Diff Today Z00.00 - Encounter for general adult medical examination without abnormal findings Comprehensive Met. Panel Today Z00.00 - Encounter for general adult medical examination without abnormal findings Free T4 (Free Thyroxine) Today Z00.00 - Encounter for general adult medical examination without abnormal findings Thyroid Stimulating Hormone Today Z00.00 - Encounter for general adult medical examination without abnormal findings Lipid Panel Today E78.00 - Pure hypercholesterolemia, unspecified, Z00.00 - Encounter for general adult medical examination without abnormal findings Vitamin D 25-OH Total Today Z00.00 - Encounter for general adult medical examination without abnormal findings Erythrocyte Sedimentation Rate Today Z00.00 - Encounter for general adult medical examination without abnormal findings C Reactive Protein Today Z00.00 - Encounter for general adult medical examination without abnormal findings XR DEXA axial skeleton Today M81.0 - Age-related osteoporosis without current pathological fracture, Z00.00 - Encounter for general adult medical examination without abnormal findings Quality Reporting (2019) Depression/Bipolar (159/160/161/177) PHQ-9: Total score: 6 Coding Level of Care Code Medicare First (G0438) Diagnoses Annual physical exam Z00.00 Osteopenia, unspecified location M85.80 Osteopenia location: unspecified Generalized anxiety disorder F41.1 CREST (calcinosis, Raynaud's phenomenon, esophageal dysfunction, sclerodactyly, telangiectasia) M34.1 Cervical cancer screening Z12.4
== END 2023-08-25 13:10 | disposition home or self-care (01) ==
PROVIDERS: Visit Provider Internal Medicine
DX: M85.80 Other specified disorders of bone density and structure, unspecified site (principal); F41.1 Generalized anxiety disorder; M34.1 CR(E)ST syndrome
CPT/HCPCS: 99212

== ENCOUNTER 2024-03-24 08:03 | Outpatient (AMB) | payer MEDICARE, SELFPAY ==
[2024-03-24 08:05] VITALS: BP 120/80; PULSE 91; O2SAT 99; BMI 21.6
--- NOTE | 2024-03-24 08:05 | AM.OFFWIN_ITS ---
Intake Vital Signs 3 03/24/24 08:05 Height 5 ft 2 in Weight 118 lb BMI 21.6 BP 120/80 Blood Pressure Location Lt brachial Position Sitting Pulse 91 Pulse Source Pulse Oximeter Pulse Oximetry (%) 99 Oxygen Delivery Method Room Air Intake Visit Reasons: EP Rash under nose Intake Note: Patient here for rash under nose that started about 1 week. she states about 3 weeks ago she went for a PFT and ended up being sick afterwards and is not sure if its related. Patient Tobacco Use Status: Never used Tobacco Allergies No Known Allergies Allergy (Verified 03/24/24 08:21) Medication List - Last Reconciled 03/24/24 by Corwin Foster MD calcium citrate-vitamin D3 315 mg-6.25 mcg (250 unit) (Citracal + Vitamin D Maximum) 1 tab PO DAILY Do you need a note to return to daycare/school/sports/work: No HPI EP Rash under nose 2 HPI0 Details Patient is 63-year-old female came in today to be evaluated for sores under her nose Patient says that 3 weeks ago she had a pulmonary function test at [facility] Three days after she started with respiratory infection which progressed into productive cough She was evaluated at urgent care, and chest x-ray were done which was negative for any pneumonia Patient continued to have respiratory symptoms, she went back 2 days later to be tested for COVID flu and RSV that was negative as well Three days later she had appointment with her accounts specialist to go over pulmonary function test At that time she has developed sores under her nose, accounts specialist treated her with valacyclovir for 7 days Patient says that sores did not get worse but they also did not get better So she came in today On examination patient have yellowish scabs over the sore which are present under the nose and slightly inside I am treating her with Augmentin to cover for possibility of erysipelas Encouraged patient to follow up with the primary care And not pick on the scabs. [facility] Medical History Back pain Dysuria Sinusitis Anxiety UTI (urinary tract infection) Kidney function abnormal Abdominal cramping NIKO positive Hiatal hernia GERD (gastroesophageal reflux disease) Surgical History Hx of colonoscopy History of esophagogastroduodenoscopy (EGD) History of myomectomy Status post hysteroscopic polypectomy Family History Father Hypertension Mother Hypertension Paternal Grandmother Stroke Daughter Healthy female Social History Housing: House Alcohol intake: never Patient Tobacco Use Status: Never used Tobacco e-Cigarette/Vaping Use: Never Used Second Hand Smoke Exposure: No service: No Current occupational status: employed Current occupational exposures/hazards: No Cognitive needs: No Hearing needs: No Vision needs: No Review of Systems Const All systems reviewed & are unremarkable except as noted in HPI and below Physical Exam Vital Signs: Last Vital Signs Pulse 91 03/24/24 08:05 BP 120/80 03/24/24 08:05 Pulse Ox 99 03/24/24 08:05 Oxygen Delivery Method Room Air 03/24/24 08:05 BMI result Body Mass Index 21.6 Const General: no acute distress Orientation/consciousness: patient oriented x3 HEENT Head images: 2 1. Yellowish scabs over erythematous rash under the nose and slightly in nostril Eyes General: appearance normal, both eyes and all related structures Resp Effort & Inspection: normal respiratory effort and able to speak in complete sentences Neuro General: patient oriented x3 Psych Mental Status: mental status grossly normal Assessment & Plan Assessment & Plan (1) Cellulitis of face: Code(s): L03.211 - Cellulitis of face Plan Patient is 63-year-old female came in today to be evaluated for sores under her nose Patient says that 3 weeks ago she had a pulmonary function test at [facility] Three days after she started with respiratory infection which progressed into productive cough She was evaluated at urgent care, and chest x-ray were done which was negative for any pneumonia Patient continued to have respiratory symptoms, she went back 2 days later to be tested for COVID flu and RSV that was negative as well Three days later she had appointment with her accounts specialist to go over pulmonary function test At that time she has developed sores under her nose, accounts specialist treated her with valacyclovir for 7 days Patient says that sores did not get worse but they also did not get better So she came in today On examination patient have yellowish scabs over the sore which are present under the nose and slightly inside I am treating her with Augmentin to cover for possibility of erysipelas Encouraged patient to follow up with the primary care And not pick on the scabs. Medications: New 2 amoxicillin-pot clavulanate 500-125 mg 1 tab PO Q8H 21 tabs 0RF 7 days Coding Level of Care Code Est Pt Level 4 (50257) Diagnoses Cellulitis of face L03.211
== END 2024-03-24 08:35 | disposition home or self-care (01) ==
PROVIDERS: PCP Internal Medicine; Visit Provider Internal Medicine
DX: L03.211 Cellulitis of face (principal)

== ENCOUNTER → 2024-03-24 08:03 | Outpatient (BNVA) | payer MEDICARE, SELFPAY | PROVIDERS: PCP Internal Medicine; Visit Provider Internal Medicine | DX: L03.211 Cellulitis of face (principal) | CPT/HCPCS: 99212 ==

== ENCOUNTER 2024-04-20 08:00 | Outpatient (AMB) | payer MEDICARE, SELFPAY ==
[2024-04-20 08:14] VITALS: BP 110/78; PULSE 88; TEMP 36.9; O2SAT 98
--- NOTE | 2024-04-20 08:14 | AM.OFFWIN_ITS ---
Intake Vital Signs 04/20/24 08:14 Weight 120 lb BP 110/78 Blood Pressure Location Rt brachial Position Sitting Pulse 88 Pulse Source Pulse Oximeter Temp 98.5 F Temp Source Oral Pulse Oximetry (%) 98 Oxygen Delivery Method Room Air Intake Visit Reasons: EP RT eye redness, pus Intake Note: Patient here for right eye redness, woke up with it yesterday with discharge. Patient Tobacco Use Status: Never used Tobacco Allergies No Known Allergies Allergy (Verified 04/20/24 08:16) Do you need a note to return to daycare/school/sports/work: No HPI HPI Comments History of Present Illness Details History of Present Illness - The patient is a 63-year-old female pr esenting with right eye discharge, yellow to green in color. She denies wearing contacts or pain in her eye or changes in her vision. - Frequent viral infections noted, with a current cold beginning last week. Right eye symptoms including purulent discharge started yesterday, described as greenish-yellow and causing vision blurring, particularly after waking. - Eye symptoms include redness and swell ing in conjunction with known dry eye condition treated with single vial artificial tears. - Reports concurrent sore throat and ear discomfort in relation to viral illness, but no prior infection despite ongoing dry eye management for two years. - Pt also c/o bilateral ear pressure wit h her cold Physical Exam General: Cooperative, healthy appearing, comfortable, no acute distress and well developed Orientation: Patient oriented x3 Limitations: No limitations Head: Normal to inspection Ears: Hearing grossly normal bilaterally, TMs normal bilaterally however slight fluid behind right TM Nose: Normal external nose present Face and sinus: Normal facial exam Eyes: Right eye with green exudate present, slight upper lid swelling; left eye appears normal Neck: Normal visual inspection and Yes full ROM Mouth: Posterior oropharynx erythema Respiratory: Normal respiratory effort and able to speak in complete sentences. Skin: No rashes or lesions noted Neuro: Patient oriented x3 Extremities: Normal to inspection [facility] Medical History Back pain Dysuria Sinusitis Anxiety UTI (urinary tract infection) Kidney function abnormal Abdominal cramping NIKO positive Hiatal hernia GERD (gastroesophageal reflux disease) Surgical History Hx of colonoscopy History of esophagogastroduodenoscopy (EGD) History of myomectomy Status post hysteroscopic polypectomy Family History Father Hypertension Mother Hypertension Paternal Grandmother Stroke Daughter Healthy female Social History Housing: House Alcohol intake: never Patient Tobacco Use Status: Never used Tobacco e-Cigarette/Vaping Use: Never Used Second Hand Smoke Exposure: No service: No Current occupational status: employed Current occupational exposures/hazards: No Cognitive needs: No Hearing needs: No Vision needs: No Review of Systems Const All systems reviewed & are unremarkable except as noted in HPI and below Physical Exam Vital Signs: Last Vital Signs Temp 98.5 F 04/20/24 08:14 Pulse 88 04/20/24 08:14 BP 110/78 04/20/24 08:14 Pulse Ox 98 04/20/24 08:14 Oxygen Delivery Method Room Air 04/20/24 08:14 Assessment & Plan Assessment & Plan (1) Bacterial conjunctivitis of right eye: Code(s): H10.9 - Unspecified conjunctivitis Plan: Plan I have diagnosed bacterial conjunctivitis in the right eye, likely associated with a current viral upper respiratory infection. Erythromycin ophthalmic ointment is prescribed for application to the right eye four times daily for seven days. Instructions on application and hygiene to prevent spreading are emphasized. The patient has been advised to monitor for any vision changes or symptom progression and to seek further evaluation if needed. Prescription fulfillment is at the patient's preferred pharmacy, with therapy to start immediately. If her ear pain worsens, she should return as there is fluid there but no infection as of today. Patient was informed and verbally consented to the use of an ambient scribe for clinic note documentation during this visit. Medications: New erythromycin Apply to right eye 4 times a day while awake 0.5 inches ophthalmic-Right QID 3.5 grams 0RF Coding Level of Care Code Est Pt Level 3 (47002) Diagnoses Bacterial conjunctivitis of right eye H10.9
== END 2024-04-20 09:12 | disposition home or self-care (01) ==
PROVIDERS: PCP Internal Medicine; Visit Provider Physician Assistant
DX: H10.9 Unspecified conjunctivitis (principal)

== ENCOUNTER → 2024-04-20 08:00 | Outpatient (BNVA) | payer MEDICARE, SELFPAY | PROVIDERS: PCP Internal Medicine; Visit Provider Physician Assistant | DX: H10.31 Unspecified acute conjunctivitis, right eye (principal) | CPT/HCPCS: 99212 ==

== ENCOUNTER 2024-05-07 12:19 | Outpatient (REF) | payer MEDICARE, SELFPAY ==
--- NOTE | ~2024-05-07 | XR_ITS ---
EXAMINATION: XR SACRUM AND COCCYX CLINICAL INFORMATION: M53.3 - Sacrococcygeal disorders, not elsewhere classified COMPARISON: None available. TECHNIQUE: 2 views of the sacrum and 2 views of the coccyx were obtained. FINDINGS: There is mild loss of L5-S1 disc height. Rest the disc heights are normal. No visible fracture, lytic or sclerotic process seen. XR/XR sacrum coccyx min 2V IMPRESSION: Unremarkable sacrum examination. Electronically signed by: Jose Guadalupe Foreman MD 05/13/2024 08:47 AM EST
== END 2024-05-07 12:20 | disposition home or self-care (01) ==
LOC: HO.XRAY 12:19
PROVIDERS: PCP Internal Medicine; Visit Provider Nurse Practitioner
DX: M53.3 Sacrococcygeal disorders, not elsewhere classified (principal); K21.9 Gastro-esophageal reflux disease without esophagitis; R10.9 Unspecified abdominal pain; K82.8 Other specified diseases of gallbladder
CPT/HCPCS: 72220; 99212

== ENCOUNTER 2024-05-07 12:19 | Outpatient (AMB) | payer MEDICARE, SELFPAY ==
[2024-05-07 12:22] VITALS: BP 114/58; PULSE 88; O2SAT 98; BMI 22.8
--- NOTE | 2024-05-07 12:22 | MHC.OFFVIS ---
Vital Signs 05/07/24 12:22 Height 5 ft 2 in Weight 124 lb 12.506 oz BMI 22.8 BP 114/58 L Blood Pressure Location Lt brachial Position Sitting Pulse 88 Pulse Source Pulse Oximeter Pulse Oximetry (%) 98 Oxygen Delivery Method Room Air Intake Visit Reasons: Abdominal pain, Bowel Changes Intake Note: ESTABLISHED PATIENT Reason; Re-Est. Last seen '22. Changes/concerns? Painful sitting. Denies any bleeding. Pt does report having change in stool formation. No pain w/ exertion. Pt states pain is primarily on R side. Denies any known trauma. Last colo/egd per pt; ~ 2018 via [facility]. Allergies No Known Allergies Allergy (Verified 05/07/24 12:24) HPI HPI Abdominal pain, Bowel Changes: Details: Assessment & Plan (1) GERD (gastroesophageal reflux disease): ?Comment: This is a questionable diagnosis as she does not have heartburn and her symptoms of dysphagia were never improved with PPI or H2 therapy. aeb ?Code(s): K21.9 - Gastro-esophageal reflux disease without esophagitis ?Plan: She is still struggling with penny workup and dx of her general sx via autoimmune problems, the serum markers are mixed and not easily providing a clear dx. BUT she still has sx including her abd pain, dry eyes and Raynauds. She also has dsyphagia, again she has had extensive testing via Dr. Martell for all of her GI matters and all were negative. Her dysphagia is intermittent. She had been offered a trial of reglan in the past, but she was frightened by the s/e profile. I educate her that those a/e are extremely rare and usually only occur at higher that 80mg/day. She still feels that the upper abd pain was caused by her last EGD and dilation. She has been having loose stools. she takes a probiotic, I also recommend BEnefiber or Citrucel.? I educate her that this is used to treat both constipation and diarrhea when someone swinging back and forth and could be good with her present set of symptoms.? We will start with the most natural intervention and then will see if we need to progress forward depending on how she does with this. Return office visit in 3 months to evaluate how she is doing with her bowels.? This will give her some time to contend with her autoimmune issues in workup.? She is in agreement to this. (2) Biliary dyskinesia: ?Comment: This is from her prior HIDA scan, repeat HIDA scan seem to show a normal EF and she did not have any improvement in symptoms with Creon aeb ?Code(s): K82.8 - Other specified diseases of gallbladder (3) Abdominal cramping: ?Code(s): R10.9 - Unspecified abdominal pain CORRESPONDENCE Because I have not seen her in 2 years as she failed to follow up I defer her to the original appt. On 04/14/24 @ 10:42 Dagmar Brown Wrote To Gricelda,July Patient scheduled on 05/07/24, she requested to add her to cancellation list. You have an opening tomorrow at 9AM ok to add patient? Please advise. TODAY'S VISIT PATIENT HAS BEEN LOST TO FOLLOW-UP SINCE 2021 aROUND 01/2024 she had a mild case of COVID. Since then she has had pain just to the right of the tailbone that causes her pain when she sits. She has noticed an intermittent change in her stool shape. it is us usually normal and formed, but at times the end taper off like something squeezed it. She admits she has not seen her PCP for a while. She has been having fatigue and cold sores of the mouth. She is just recovering from a cold with laryngitis. She feels I'm not fighting things off. She still has her chronic epigastric pain that many studies have been negative for any GI causes by us and Dr. Martell. Her last EGD was 2018 at [facility] but was largely negative. She was treated for pericarditis this year or uncertain cause. This was at [facility] in [place]. She has always had some sort of undifferentiated autoimmune problem causing her severe Raynaud's. I think that this might be what is causing her tailbone pain via tissue inflammation so I will get an x-ray of the coccyx but I also encouraged her to go get all of the labs that her primary care provider has ordered so that they can best help her when she sees him next month. She can follow-up with her primary care unless ice tea something of severe concern on the x-ray which case I will contact her. I really do not see anything that needs to be addressed in terms of GI concerns. The tapering of the stool is in a normal response when the stool is more soft and it tapers as it passes through the rectum. [facility] Medical History (Updated 05/07/24 @ 12:56 by BLANK Terry) Annual physical exam Breast cancer screening by mammogram Bacterial conjunctivitis of right eye Cellulitis of face Cervical cancer screening Back pain Dysuria Sinusitis Anxiety UTI (urinary tract infection) Kidney function abnormal Abdominal cramping NIKO positive Hiatal hernia GERD (gastroesophageal reflux disease) Surgical History (Updated 05/07/24 @ 12:54 by BLANK Terry) Hx of colonoscopy History of esophagogastroduodenoscopy (EGD) History of myomectomy Status post hysteroscopic polypectomy Family History Father Hypertension Mother Hypertension Paternal Grandmother Stroke Daughter Healthy female Social History Housing: House Alcohol intake: never Patient Tobacco Use Status: Never used Tobacco e-Cigarette/Vaping Use: Never Used Second Hand Smoke Exposure: No service: No Current occupational status: employed Current occupational exposures/hazards: No Cognitive needs: No Hearing needs: No Vision needs: No Review of Systems Const Denies fatigue, Denies fever(s), Denies night sweats, Denies poor appetite and Denies weight loss ENT Reports Normal hearing present, Denies dental pain, Denies dysphagia, Denies hearing loss, Denies mouth pain, Denies odynophagia, Denies throat swelling, Denies tongue swelling and Reports other (Dentition adequate) Card Reports no additional complaints Resp Reports no additional complaints GI Details: Denies abdominal pain, Denies melena, Denies bloating, Denies hematochezia, Denies constipation, Denies GI cramping, Denies dysphagia, Denies excessive flatus, Denies early satiety, Denies heartburn, Denies diarrhea, Denies nausea, Denies odynophagia, Denies vomiting and Denies hematemesis Reports urinary hesitancy Musc Reports other (Tailbone pain) Skin/Breast Denies pruritus, Denies lesions, Denies rash and Denies jaundice Neuro Reports Normal hearing present and Denies Abnormal speech present Psych Reports anxiety Endo Denies fatigue Aller/Immun Denies throat swelling and Denies tongue swelling Physical Exam Vital Signs: Last Vital Signs Pulse 88 05/07/24 12:22 BP 114/58 L 05/07/24 12:22 Pulse Ox 98 05/07/24 12:22 Oxygen Delivery Method Room Air 05/07/24 12:22 BMI result Body Mass Index 22.8 Const General: cooperative, no acute distress, well developed and well groomed Nutritional Appearance: average body habitus and well nourished Orientation/consciousness: oriented to person, oriented to place and oriented to time Limitations: No language barrier HEENT Head: Yes normocephalic and Yes atraumatic Eyes General: appearance normal, both eyes and all related structures Pupils: Equal, round and reactive pupils present Neck Neck: Yes normal visual inspection and Yes no lymphadenopathy Thyroid: Thyroid normal Resp Effort & Inspection: normal respiratory effort and able to speak in complete sentences Auscultation: clear to auscultation bilaterally Cardio Rate: regular rate Rhythm: regular rhythm Heart sounds: Normal, physiologic split S2 sound present Peripheral pulses: radial pulses present and posterior tibial pulses present GI Inspection: No distended and No Abdominal panniculus present Palpation (GI): Soft to palpation, nontender, no guarding, not rigid and No hepatosplenomegaly present Percussion: Yes normal to percussion Auscultation: normal bowel sounds Rectal Exam - Female: deferred Back/Spine/Pelvis Coccyx: Coccyx tenderness present on direct palpation; Negative for associated swelling Back/spine/pelvis image: 1. point tenderness Skin General skin exam: no rashes or lesions noted, turgor normal, skin not dry, no jaundice, No spider nevi and no striae Rashes: no rashes Nails: normal Neuro General: oriented to person, oriented to place and oriented to time Cranial nerves: Yes Equal, round and reactive pupils present and Yes Normal hearing present Speech: No Abnormal speech present Extrem General: Yes normal to inspection, No clubbing, No cyanosis and No edema Psych Appearance: grossly normal and well kempt Mental Status: mental status grossly normal Speech and movement: Pressured speech present Affect: Anxious affect present Attitude: cooperative Thought process: not confabulating and Perseverating thought process present Thought content: Normal thought content present Insight: Limited insight present (Psych) Judgement: Limited judgement present (Psych) Assessment & Plan Assessment & Plan (1) Pain, coccyx: Code(s): M53.3 - Sacrococcygeal disorders, not elsewhere classified Category: Medical Plan PATIENT HAS BEEN LOST TO FOLLOW-UP SINCE 2021 aROUND 01/2024 she had a mild case of COVID. Since then she has had pain just to the right of the tailbone that causes her pain when she sits. She has noticed an intermittent change in her stool shape. it is us usually normal and formed, but at times the end taper off like something squeezed it. She admits she has not seen her PCP for a while. She has been having fatigue and cold sores of the mouth. She is just recovering from a cold with laryngitis. She feels I'm not fighting things off. She still has her chronic epigastric pain that many studies have been negative for any GI causes by us and Dr. Martell. Her last EGD was 2019 at [facility] but was largely negative. She was treated for pericarditis this year or uncertain cause. This was at [facility] in [place]. She has always had some sort of undifferentiated autoimmune problem causing her severe Raynaud's. I think that this might be what is causing her tailbone pain via tissue inflammation so I will get an x-ray of the coccyx but I also encouraged her to go get all of the labs that her primary care provider has ordered so that they can best help her when she sees him next month. She can follow-up with her primary care unless ice tea something of severe concern on the x-ray which case I will contact her. I really do not see anything that needs to be addressed in terms of GI concerns. The tapering of the stool is in a normal response when the stool is more soft and it tapers as it passes through the rectum. Orders: Orders XR sacrum coccyx min 2V Today M53.3 - Sacrococcygeal disorders, not elsewhere classified XR DEXA axial skeleton 08/25/23 M81.0 - Age-related osteoporosis without current pathological fracture, Z00.00 - Encounter for general adult medical examination without abnormal findings Coding Level of Care Code Est Pt Level 3 (48434) Diagnoses Pain, coccyx M53.3
== END 2024-05-07 16:50 | disposition home or self-care (01) ==
PROVIDERS: PCP Internal Medicine; Visit Provider Nurse Practitioner
DX: M53.3 Sacrococcygeal disorders, not elsewhere classified (principal)
CPT/HCPCS: 99213

== ENCOUNTER → 2024-05-07 13:10 | Outpatient (BNV) | payer MEDICARE, SELFPAY | PROVIDERS: PCP Internal Medicine; Visit Provider Radiology Diagnostic Radiology | DX: M53.3 Sacrococcygeal disorders, not elsewhere classified (principal) | CPT/HCPCS: 72220 ==

== ENCOUNTER 2024-06-14 16:32 | Outpatient (AMB) | payer MEDICARE, SELFPAY ==
[2024-06-14 16:34] VITALS: BP 114/72; PULSE 85; O2SAT 98; BMI 23.2
--- NOTE | 2024-06-14 16:34 | MHC.PC.OV ---
Vital Signs 06/14/24 16:34 Height 5 ft 2 in Weight 127 lb BMI 23.2 BP 114/72 Blood Pressure Location Lt brachial Position Sitting Pulse 85 Pulse Source Pulse Oximeter Pulse Oximetry (%) 98 Oxygen Delivery Method Room Air Intake Visit Reasons: Stomach pain Allergies No Known Allergies Allergy (Verified 06/14/24 16:34) Tobacco use date assessed: 06/14/24 Fall risk assessment: No Falls in past year Last assessed Fall Risk: 06/14/24 Dental Screening Dental Screen Date: 06/14/24 Did you have a dental visit in the last 12 months?: Yes Did you have a dental problem in the last 6 months where you did not have access to dental care?: No Was dental information given to patient?: Patient has dentist HPI Stomach pain HPI Details complains of tiredness, has covid november The patient is a 63-year-old female presenting with fatigue, initially reported as significant for the past nine months. The patient reports increased need for sleep, averaging 10-12 hours per day, and persistent tiredness. She noted an episode of COVID-19 in late November, which has since resolved, leaving persistent nasal congestion. In January, the patient underwent pulmonary function testing, revealing decreased diffusing capacity, followed by an echo indicating elevated pulmonary pressures on the right side, suggestive of pulmonary hypertension, potentially linked to connective tissue disease. She was referred to cardiology and advised to consider right heart catheterization. Historically, the patient has been diagnosed with CREST syndrome, Raynaud's phenomenon leading to pericarditis, and Sj?gren's syndrome, contributing to symptoms of generalized fatigue and possible influence on cardiac and pulmonary health. She has experienced recurrent episodes of infection, including conjunctivitis, nasal rash treated with antibiotics, and recurrent cold sores. The patient also reports significant loss of taste and smell following a viral infection after the COVID-19 episode. [facility] Medical History (Updated 06/14/24 @ 16:50 by Ayla Manzano MD) Annual physical exam Breast cancer screening by mammogram Bacterial conjunctivitis of right eye Cellulitis of face Cervical cancer screening Back pain Dysuria Sinusitis Anxiety UTI (urinary tract infection) Kidney function abnormal Abdominal cramping NIKO positive Hiatal hernia GERD (gastroesophageal reflux disease) Surgical History (Updated 05/07/24 @ 12:54 by BLANK Terry) Hx of colonoscopy History of esophagogastroduodenoscopy (EGD) History of myomectomy Status post hysteroscopic polypectomy Family History Father Hypertension Mother Hypertension Paternal Grandmother Stroke Daughter Healthy female Social History Housing: House Alcohol intake: never Patient Tobacco Use Status: Never used Tobacco Tobacco use type: Cigarette e-Cigarette/Vaping Use: Never Used Second Hand Smoke Exposure: No service: No Current occupational status: employed Current occupational exposures/hazards: No Cognitive needs: No Hearing needs: No Vision needs: No Questionnaire PHQ-9 Over the last 2 weeks, how often have you been bothered by any of the following problems? 1. Little interest or pleasure in doing things: several days 2. Feeling down, depressed, or hopeless: several days 3. Trouble falling or staying asleep, or sleeping too much: several days 4. Feeling tired or having little energy: several days 5. Poor appetite or overeating: several days 6. Feeling bad about yourself - or that you are a failure or have let yourself or your family down: several days 7. Trouble concentrating on things, such as reading the newspaper or watching television: not at all 8. Moving or speaking so slowly that other people could have noticed. Or the opposite - being so fidgety or restless that you have been moving around a lot more than usual: not at all 9. Thoughts that you would be better off or of hurting yourself in some way: not at all Total score: 6 Depression Screening Interpretation: Negative Depression Screening Done: Yes 03089 - PHQ-9 Billing: Yes Source: Developed by Drs. Austen Long, Viviane Velez, Ja Moseley and colleagues, with an educational savannah from [employer] Thrive Questionnaire Date Thrive assessed: 06/14/24 I am a: Patient What is your living situation today?: I have a steady place to live Within the past 12 months, did the food you bought not last and you didn't have the money to get more?: Never true Within the past 12 months, did you worry whether your food would run out before you got money to buy more?: Never true Do you have trouble paying for medicines?: No Do you have trouble getting transportation to medical appointments?: No Do you have trouble paying your heating and electricity bill?: No Do you have trouble taking care of your child, family member or friend?: No Do you have trouble with day-to-day activities such as bathing, preparing meals, shopping, managing finances, etc.?: No Are you currently unemployed and looking for a job?: No Are you interested in more education?: No Currently or been in a relationship where the following occur: No concerns reported THRIVE Score: 0 AUDIT C Alcohol Use Questionnaire (AUDIT-C) 1. How often do you have a drink containing alcohol?: Monthly or less Total Score: 1 MAGGIE-7 AMB Questionnaire MAGGIE-7 Date MAGGIE - 7 assessed: 06/14/24 Feeling nervous, anxious, or on edge: 0 = Not at all Not being able to stop or control worryin = Not at all Worrying too much about different things: 0 = Not at all Trouble relaxin = Not at all Being so restless that it is hard to sit still: 0 = Not at all Becoming easily annoyed or irritable: 0 = Not at all Feeling afraid as if something awful might happen: 0 = Not at all Total MAGGIE-7 score (0-4 normal; 5-9 mild; 10-14 moderate; 15-21 severe): 0 Source: Developed by Drs. Austen Long, Viviane Velez, Ja Moseley and colleagues, with an educational savannah from [employer] MAGGIE-7 Assessment Billing MAGGIE-7 Assessment Tool: MAGGIE-7 Assessment 26522 Physical exam (Primary Care) Vital Signs: Last Vital Signs Pulse 85 06/14/24 16:34 BP 114/72 06/14/24 16:34 Pulse Ox 98 06/14/24 16:34 Oxygen Delivery Method Room Air 06/14/24 16:34 BMI result Body Mass Index 23.2 Tobacco/Smoking Status: Tobacco use Status Tobacco use date assessed 06/14/24 06/14/24 16:38 Patient Tobacco Use Status Never used Tobacco 06/14/24 16:38 Tobacco use type Cigarette 06/14/24 16:38 e-Cigarette/Vaping Use Never Used 06/14/24 16:38 PHQ-9: PHQ-9 Score PHQ-9: Total score 6 06/14/24 16:38 Depression Screening Interpretation: Negative Thrive Assessment: Date of Thrive Assessment Date Thrive assessed 06/14/24 06/14/24 16:38 Currently or been in a relationship where the following occur: No concerns reported Const General: alert; No acute distress Eyes Conjunctivae: conjunctivae normal Resp Auscultation: clear to auscultation bilaterally Cardio Rate: regular rate Rhythm: regular rhythm GI Inspection: Yes normal to inspection Extrem General: Yes normal to inspection and No edema Coding Level of Care Code Est Pt Level 4 (04503) Diagnoses Undifferentiated connective tissue disease M35.9 GERD (gastroesophageal reflux disease) K21.9 Osteopenia, unspecified location M85.80 Osteopenia location: unspecified Additional Codes MAGGIE-7 Assessment Billing - MAGGIE-7 Assessment Tool: MAGGIE-7 Assessment 87042 ([id number]) PHQ-9 - 05838 - PHQ-9 Billing: Yes ([id number]) Assessment & Plan Assessment & Plan (1) Undifferentiated connective tissue disease: Code(s): M35.9 - Systemic involvement of connective tissue, unspecified Category: Medical Plan: Patient continued to be followed up in [place] regarding the patient's Sjogren's and Raynaud's (2) GERD (gastroesophageal reflux disease): Comment: This is a questionable diagnosis as she does not have heartburn and her symptoms of dysphagia were never improved with PPI or H2 therapy. aeb Code(s): K21.9 - Gastro-esophageal reflux disease without esophagitis Category: Medical Plan: Avoid the foods that causes that usually spicy foods, tomato products, juices, coffee, soda and foods that your sensitive to. After eating do not lie down, allow 3-4 hours before in lie down. And keep the head of bed above 30 degrees to avoid the acid from going up. (3) Osteopenia: Comment: October 2020 osteopenia bone density Code(s): M85.80 - Other specified disorders of bone density and structure, unspecified site Category: Medical Qualifiers: Osteopenia location: unspecified Qualified Code(s): M85.80 - Other specified disorders of bone density and structure, unspecified site Plan: Reminded about bone density Plan - Continue management of GERD, consider trial of pantoprazole due to concerns about long-term effects of omeprazole. - Further workup and management of Sj?gren's syndrome with regular follow-ups. - Evaluate for pulmonary hypertension, with a potential referral for right heart catheterization based on echo findings. - Continue colchicine and indomethacin as per previous rheumatology recommendations for pericarditis. - Consider immunology referral if recurrent infections persist to assess immune function comprehensively. - Conduct further cardiology assessment to explore pulmonary pressures and the potential impact of connective tissue disease. - Schedule bone density scan as indicated to monitor osteopenia. - Monitor for hypertension and adjust antihypertensive therapy as needed. - Implement preventive measures for recurrent infections and overall well-being, emphasizing nasal hygiene and hydration. - Encourage regular follow-up visits to monitor symptoms and treatment efficacy, especially in regards to fatigue and immune function. Orders: Orders Magnesium Today K21.9 - Gastro-esophageal reflux disease without esophagitis Phosphorus Today K21.9 - Gastro-esophageal reflux disease without esophagitis Medications: New pantoprazole 40 mg PO DAILY 30 tabs 0RF K21.9 - Gastro-esophageal reflux disease without esophagitis Refilled lorazepam 0.5 mg PO BID 5 days PRN 10 tabs 0RF anxiety F41.9 - Anxiety disorder, unspecified
== END 2024-06-14 17:31 | disposition home or self-care (01) ==
PROVIDERS: PCP Internal Medicine; Visit Provider Internal Medicine
DX: M35.9 Systemic involvement of connective tissue, unspecified (principal); K21.9 Gastro-esophageal reflux disease without esophagitis; M85.80 Other specified disorders of bone density and structure, unspecified site

== ENCOUNTER → 2024-06-14 16:32 | Outpatient (BNVA) | payer MEDICARE, SELFPAY | PROVIDERS: PCP Internal Medicine; Visit Provider Internal Medicine | DX: M35.9 Systemic involvement of connective tissue, unspecified (principal); K21.9 Gastro-esophageal reflux disease without esophagitis; M85.80 Other specified disorders of bone density and structure, unspecified site | CPT/HCPCS: 96127; 99212 ==

== ENCOUNTER 2024-06-25 08:21 | Outpatient (REF) | payer MEDICARE, SELFPAY ==
[2024-06-25 08:40] LABS: MANUAL DIFF FLAG NO
[2024-06-25 09:17] LABS: Basophils Percent Auto 0.7 % (0-2); Eosinophils Absolute Auto 0.3 X10*3/uL (0.0-0.4); Eosinophils Percent Auto 4.4 % (0-4); Hematocrit 44.5 % (37.0-47.0); Hemoglobin 14.1 g/dl (12.0-16.0); Imm Gran Abs Auto 0.01 X10*3/uL (0.00-0.03); Imm Gran Pct Auto 0.2 % (0.0-0.4); Lymphocytes Absolute Auto 2.3 X10*3/uL (1.2-4.9); Lymphocytes Percent Auto 37.5 % (20-40); Mean Corpuscular HGB Conc 31.7 g/dl (31.0-35.0); Mean Corpuscular Hemoglobin 28.4 pg (27.0-33.0); Mean Corpuscular Volume 89.5 fL (80.0-98.0); Mean Platelet Volume 10.1 fL (9.4-12.3); Monocytes Absolute Auto 0.9 X10*3/uL (0.1-1.2); Monocytes Percent Auto 14.9 % (2-11); Neutrophils Absolute Auto 2.6 x10*3/uL (2.0-8.3); Neutrophils Percent Auto 42.3 % (45-73); Platelet Count 275 X10*3/uL (160-400); Red Blood Count 4.97 X10*6/uL (4.20-5.50); White Blood Count 6.1 X10*3/uL (4.8-10.8)
[2024-06-25 09:52] LABS: Alanine Aminotransferase 22 U/L (0-31); Albumin Level 4.6 g/dL (3.5-5.0); Alkaline Phosphatase 79 U/L (39-117); Anion Gap 13 (12-20); Aspartate Amino Transferase 25 U/L (5-31); Bilirubin Total 0.4 mg/dL (0.0-1.0); Blood Urea Nitrogen 17 mg/dL (9-16); C Reactive Protein < 0.10 mg/dL (< or = 0.50); Calcium 10.1 mg/dL (8.4-10.2); Carbon Dioxide 28 mmol/L (22-29); Chloride 106 mmol/L (96-108); Cholesterol 263 mg/dL (<200); Estimated Glomerular Filt Rate > 60; Glucose Random 103 mg/dL (60-115); HDL Cholesterol 88 mg/dL (>40); LDL Cholesterol Calculated 160 mg/dL (<100); Magnesium 2.1 mg/dL (1.6-2.6); Potassium 4.3 mmol/L (3.3-5.1); Sodium 143 mmol/L (135-145); Total Protein 8.2 g/dL (6.5-8.0); Triglycerides 79 mg/dL (<150)
[2024-06-25 09:57] LABS: Erythrocyte Sedimentation Rate 10 MM/HR (0-20)
[2024-06-25 09:59] LABS: Free T4 (Free Thyroxine) 1.23 ng/dL (0.71-1.85); Thyroid Stimulating Hormone 2.31 uIU/mL (0.32-4.0); Vitamin D 25-OH Total 62.1 ng/mL (>30)
[2024-06-25 10:17] LABS: Vitamin B12 470 pg/mL (200-900)
[2024-06-25 10:43] LABS: Appearance Urine Clear; Color Urine Yellow; Glucose Urine UA Negative (Negative); Leukocyte Esterase Urine Trace (Negative); Nitrite Urine Negative (Negative); PH 5.5 (5.0-9.0); UMIC TRIGGER UACC YES; Urine Blood Trace (Negative); Urine Ketones Negative (Negative); Urine Protein Negative (Neg-Trace)
[2024-06-25 10:46] LABS: Bacteria Urine None Seen (None Seen); Hyaline Casts Urine 0-2 /LPF (0-2); RBC Urine 0-2 /HPF (0-2); Squamous Epithelial Cell Urine 0-2 /HPF (0-2); WBC Urine 0-5 /HPF (0-5)
== END 2024-06-25 08:22 | disposition home or self-care (01) ==
LOC: HO.LAB 08:21
PROVIDERS: PCP Internal Medicine; Visit Provider Internal Medicine
DX: Z00.00 Encounter for general adult medical examination without abnormal findings (principal); E78.00 Pure hypercholesterolemia, unspecified; K21.9 Gastro-esophageal reflux disease without esophagitis
CPT/HCPCS: 36415; 80053; 80061; 81001; 82306; 82607; 82746; 83735; 84100; 84439; 84443; 85025; 85652; 86140

== ENCOUNTER 2024-08-31 12:54 | Outpatient (AMB) | payer MEDICARE, SELFPAY ==
[2024-08-31 13:01] VITALS: BP 112/68; PULSE 78; O2SAT 100; BMI 22.5
--- NOTE | 2024-08-31 13:01 | AM.OFFVISMDC ---
Intake Vital Signs 08/31/24 13:01 Height 5 ft 2 in Weight 123 lb BMI 22.5 BP 112/68 Blood Pressure Location Lt brachial Position Sitting Pulse 78 Pulse Source Pulse Oximeter Pulse Oximetry (%) 100 Oxygen Delivery Method Room Air Intake Visit Reasons: MEDICARE WELLNESS SUBSEQUENT Allergies No Known Allergies Allergy (Verified 06/14/24 16:34) Medication List - Last Reconciled 08/31/24 by Ayla Manzano MD calcium citrate-vitamin D3 315 mg-6.25 mcg (250 unit) (Citracal + Vitamin D Maximum) 1 tab PO DAILY lorazepam 0.5 mg PO BID PRN 5 days pantoprazole 40 mg PO DAILY valacyclovir 2,000 mg (2 x 1 gram) PO BID 1 day PFSH Medical History (Updated 08/31/24 @ 13:50 by Ayla Manzano MD) Breast cancer screening by mammogram Annual physical exam Bacterial conjunctivitis of right eye Cellulitis of face Cervical cancer screening Back pain Dysuria Sinusitis Anxiety UTI (urinary tract infection) Kidney function abnormal Abdominal cramping NIKO positive Hiatal hernia GERD (gastroesophageal reflux disease) Surgical History (Updated 05/07/24 @ 12:54 by BLANK Terry) Hx of colonoscopy History of esophagogastroduodenoscopy (EGD) History of myomectomy Status post hysteroscopic polypectomy Family History Father Hypertension Mother Hypertension Paternal Grandmother Stroke Daughter Healthy female Social History Housing: House Alcohol intake: never Patient Tobacco Use Status: Never used Tobacco Tobacco use type: Cigarette e-Cigarette/Vaping Use: Never Used Second Hand Smoke Exposure: No service: No Current occupational status: employed Current occupational exposures/hazards: No Cognitive needs: No Hearing needs: No Vision needs: No Questionnaire Medicare Wellness Checkup [age] 65-67 What gender do you identify with?: female During the past 4 weeks, how much have you been bothered by emotional problems such as feeling anxious, depressed, irritable, sad or downhearted, and blue?: slightly During the past 4 weeks, has your physical & emotional health limited your social activities with family, friends, neighbors, or groups?: not at all During the past 4 weeks, how much bodily pain have you generally had?: very mild pain During the past 4 weeks, was someone available to help you if you needed & wanted help?: yes, as much as I wanted During the past 4 weeks, what was the hardest physical activity you could do for at least 2 minutes?: moderate Can you get to places out of walking distance without help? (For eg., can you travel alone on buses, taxis or drive your car?): Yes Can you go shopping for groceries or clothes without someone's help?: Yes Can you prepare your own meals?: Yes Can you do your housework without help?: Yes Because of any health problems, do you need the help of another person with your personal care needs such as eating, bathing, dressing or getting around the house?: No Can you handle your own money without help?: Yes During the past 4 weeks, how would you rate your health in general?: fair During the past 4 weeks how have things been going for you?: good & bad parts about equal Are you having difficulties driving your car?: no Do you always fasten your seat belt when you are in a car?: yes, usually During past 4 weeks, have you been bothered by the following: never: Falling or dizzy when standing up, Sexual problems?, Trouble eating well?, Teeth or denture problems? and Problems using the telephone? and seldom: Tiredness or fatigue? Have you fallen 2 or more times in the past year?: No Are you afraid of falling?: No Are you a smoker?: no During the past 4 weeks, how many drinks of wine, beer, or other alcoholic beverages did you have?: no alcohol at all Do you exercise for about 20 minutes 3 or more times a week?: yes, some of the time Have you been given information to help with the following?: no: Hazards in your house that might hurt you? and no: Keeping track of your medications? How often do you have trouble taking medicines the way you have been told to take them?: I always take medicine as prescribed How confident are you that you can control & manage most of your health problems?: somewhat confident What is your race?: White PHQ-9 Over the last 2 weeks, how often have you been bothered by any of the following problems? 1. Little interest or pleasure in doing things: not at all 2. Feeling down, depressed, or hopeless: not at all 3. Trouble falling or staying asleep, or sleeping too much: several days 4. Feeling tired or having little energy: several days 5. Poor appetite or overeating: not at all 6. Feeling bad about yourself - or that you are a failure or have let yourself or your family down: not at all 7. Trouble concentrating on things, such as reading the newspaper or watching television: not at all 8. Moving or speaking so slowly that other people could have noticed. Or the opposite - being so fidgety or restless that you have been moving around a lot more than usual: not at all 9. Thoughts that you would be better off or of hurting yourself in some way: not at all Total score: 2 Depression Screening Interpretation: Positive Depression Screening Done: Yes 45269 - PHQ-9 Billing: Yes Source: Developed by Drs. uAsten Long, Viviane Velez, Ja Moseley and colleagues, with an educational savannah from [employer]. Thrive Questionnaire Date Thrive assessed: 06/14/24 MAGGIE-7 AMB Questionnaire MAGGIE-7 Date MAGGIE - 7 assessed: 06/14/24 Source: Developed by Drs. Austen Long, Ja Cuello and colleagues, with an educational savannah from [employer]. Review of Systems Const Denies poor appetite and Denies weakness Eyes Denies no additional complaints ENT Reports Normal hearing present, Denies dizziness, Denies nasal congestion, Denies tinnitus and Denies sore throat Card Denies chest pain, Denies syncope, Denies rapid heart rate and Denies dyspnea Resp Denies cough and Denies dyspnea GI Denies change in stool character, Reports constipation, Denies diarrhea, Denies nausea and Denies vomiting Denies urinary frequency, Denies difficulty voiding and Denies dysuria Neuro Reports Normal hearing present, Denies confusion, Denies dizziness, Denies syncope and Denies weakness Psych Denies confusion Physical Exam Vital Signs: Last Vital Signs Pulse 78 08/31/24 13:01 BP 112/68 08/31/24 13:01 Pulse Ox 100 08/31/24 13:01 Oxygen Delivery Method Room Air 08/31/24 13:01 BMI result Body Mass Index 22.5 Const General: alert and awake; No confusion Orientation/consciousness: No confusion HEENT Head: Yes normocephalic Ears: external ears normal and TM's normal bilaterally Face and sinus: Yes normal facial exam Mouth: moist mucous membranes Throat: Yes tonsils normal Eyes Conjunctivae: conjunctivae normal Pupils: Equal, round and reactive pupils present and Pupil accommodation reflex normal Direct Ophthalmoscopy: normal light reflex Neck Neck: No lymphadenopathy Thyroid: Thyroid normal Chest Chest palpation & inspection: normal inspection of the chest Resp Effort & Inspection: normal respiratory effort and no audible wheezes Auscultation: clear to auscultation bilaterally, no crackles, no wheezes and lung sounds not diminished Cardio Rate: regular rate Rhythm: regular rhythm Peripheral pulses: radial pulses present and dorsalis pedis present GI Palpation (GI): no masses Auscultation: normal bowel sounds and normoactive bowel sounds Rectal Exam - Female: deferred Skin General skin exam: no rashes or lesions noted Rashes: no rashes Neuro General: deep tendon reflexes 2+ bilaterally and No confusion Cranial nerves: Yes Equal, round and reactive pupils present, Yes Midline tongue present, Yes Normal hearing present and Yes Ability to bilaterally elevate shoulders present Cognition (Neuro): normal cognition Gait exam (Neuro): Normal gait present Motor exam (neuro): 5/5 motor strength present throughout Deep tendon reflexes (DTR's): Right brachioradialis reflex intensity grade: 2+, Left brachioradialis reflex intensity grade: 2+, Right patellar reflex intensity grade: 2+ and Left patellar reflex intensity grade: 2+ Extrem General: No edema Immunizations pneumoc 20-andrew conj-dip cr(PF) 0.5 mL IM syringe Performing Provider: Ayla Manzano MD [facility] Administered by: MAXIMO Roche on 08/31/24 14:04 Dose Route Admin Location Dispensed Lot Number Expiration Date [facility] Business [employer] 0.5 mL IM Left Deltoid 0.5 mL [id number] 06/26/25 curated.by/[employer] VIS Given Date VIS Provided VIS Publication Date 08/31/24 Single Vaccine 22 Eligibility Eligibility Date Funding Source Not [facility] Eligible 08/31/24 Private Assessment & Plan Assessment & Plan (1) Medicare annual wellness visit, subsequent: Code(s): Z00.00 - Encounter for general adult medical examination without abnormal findings Plan: Patient is advised to eat healthy, keep well hydrated, keep active and have adequate sleep. (2) GERD (gastroesophageal reflux disease): Comment: This is a questionable diagnosis as she does not have heartburn and her symptoms of dysphagia were never improved with PPI or H2 therapy. aeb Code(s): K21.9 - Gastro-esophageal reflux disease without esophagitis Plan: Avoid the foods that causes that usually spicy foods, tomato products, juices, coffee, soda and foods that your sensitive to. After eating do not lie down, allow 3-4 hours before in lie down. And keep the head of bed above 30 degrees to avoid the acid from going up. On pantoprazole (3) Osteopenia: Comment: October 2020 osteopenia bone density Code(s): M85.80 - Other specified disorders of bone density and structure, unspecified site Qualifiers: Osteopenia location: unspecified Qualified Code(s): M85.80 - Other specified disorders of bone density and structure, unspecified site Plan: Continue to monitor bone density (4) Generalized anxiety disorder: Code(s): F41.1 - Generalized anxiety disorder Plan: Continue with lorazepam as needed (5) Undifferentiated connective tissue disease: Code(s): M35.9 - Systemic involvement of connective tissue, unspecified Plan: Continue to follow-up with Rheumatology (6) Impaired fasting blood sugar: Code(s): R73.01 - Impaired fasting glucose Plan: Decrease the amount of carbohydrate intake, pasta, bread, rice and potatoes are all sugar and that is aside from all the sweet stuff, remember that fruits are good but they are Sweet also. (7) Hypercholesterolemia: Code(s): E78.00 - Pure hypercholesterolemia, unspecified Plan: Avoid fried foods, chicken skin, eggs, butter margarine, pastries and meat. Be it pork or beef they have a lot of cholesterol LDL goal of less than 130 and triglyceride of less than 150 (8) Breast cancer screening by mammogram: Code(s): Z12.31 - Encounter for screening mammogram for malignant neoplasm of breast Plan: Reminded about mammogram (9) Stress incontinence: Code(s): N39.3 - Stress incontinence (female) (male) Plan History of Present Illness The patient is a 64-year-old female presenting for her annual wellness examination and management of established chronic health conditions. She carries a diagnosis of GERD, managed with pantoprazole, and expresses concern over the potential link between long-term proton pump inhibitor use and dementia. Her reflux manifests primarily as throat discomfort rather than heartburn, and she possesses a hiatal hernia. Coupled with her osteopenia, she is due for a bone density test. The patient's chronic conditions also include biliary dyskinesia and CREST syndrome, alongside an undifferentiated connective tissue disease. Pulmonary complications feature prominently in her history. She has been evaluated for suspected dyspnea, with imaging and functional tests proving negative for interstitial lung disease or pleural effusion. However, she has since been diagnosed with pulmonary arterial hypertension. Relevant lab work from May highlighted mild hyperglycemia and hypercholesterolemia, albeit with preserved renal function, normal thyroid, B12, and vitamin D statuses. The patient has a recurrence of herpes simplex infections, with notable breakout severity recently impacting her lips and nasal area. Additionally, she disclosed her episodes of urinary stress incontinence during sneezing or physical exertion, with no current phenomena suggestive of urge incontinence. Health Maintenance - Mammogram is due for scheduling - Bone Density Scan is overdue - Yearly eye examination recommended - Pneumonia vaccination administered during visit - Emphasis on cholesterol management and dietary modification to mitigate cardiovascular risks - Encourage regular Kegel exercises for stress incontinence management Social History - Sedentary lifestyle with limited physical exercise - Previous chemical exposure, possibly environmental - with no current sexual partners for ten years Review of Systems - Gastrointestinal: Reports GERD - Musculoskeletal: Reports osteoporosis - Dermatologic: Reports recurrent oral HSV breakouts - Pulmonary: Reports previous dyspnea, resolved with treatment - Cardiovascular: Reports pulmonary arterial hypertension - Genitourinary: Reports stress urinary incontinence - General: Denies smoking and alcohol use Physical Exam General: Cooperative, healthy appearing, comfortable, no acute distress and well developed Orientation: Patient oriented x3 Limitations: No limitations Head: Normal to inspection Ears: Hearing grossly normal bilaterally Nose: Normal external nose present Face and sinus: Normal facial exam Eyes: Appearance normal, both eyes and all related structures Neck: Normal visual inspection and Yes full ROM Respiratory: Normal respiratory effort and able to speak in complete sentences. Clear to auscultation bilaterally Cardiovascular: Regular rate and rhythm. Normal S1 and S2 GI: Normal to inspection. Soft to palpation and nontender Skin: No rashes or lesions noted Neuro: Patient oriented x3 Extremities: Normal to inspection Results - Labs: Recent blood count normal, renal function preserved, mild hyperglycemia, elevated LDL - Imaging: Previous chest imaging negative for interstitial disease or pleural effusion - Diagnostics: Pulmonary function tests within normal limits Plan The patient will continue with pantoprazole for GERD management despite concerns regarding long-term usage. She needs to schedule overdue mammogram and bone density assessments. Diet changes are advised for cholesterol management due to her hypercholesterolemia. Pulmonary arterial hypertension treatment remains stable with routine monitoring. For reported stress urinary incontinence, she is encouraged to perform Kegel exercises and monitor progress. The pneumococcal vaccine was administered as part of routine health maintenance. She is also advised to report any significant changes in symptoms or new concerns promptly. Patient was informed and verbally consented to the use of an ambient scribe for clinic note documentation during this visit. Discussion Notes I discussed with the patient the management of her chronic conditions, including GERD management with pantoprazole, addressing her concerns about long-term treatment implications. Emphasis was placed on health maintenance screenings, especially her overdue mammogram and bone density testing. We reviewed cholesterol management strategies, focusing on dietary modifications and routine monitoring. The patient's pulmonary status remains stable under current management, with reinforcement on lifestyle adaptations for stress incontinence. I recommended ongoing Kegel exercises before considering pharmacological intervention. Her concern regarding herpes outbreaks was addressed with a focus on identifying triggers and managing symptoms as stress-related. Additionally, we administered the pneumococcal vaccine and discussed its importance in her age group. Follow-up appointments will ensure continuous care and management of these conditions. Patient Instructions - Continue taking pantoprazole as directed for GERD - Schedule mammogram and bone density scan soon - Eat a balanced diet low in saturated fats to manage cholesterol - Practice Kegel exercises to help manage urinary incontinence - Call for any increased symptoms of GERD, HSV outbreaks, or new health concerns - Attend follow-up appointments as discussed with your specialists - Stay on top of screenings and vaccinations for optimal health Orders: Orders MM tomosynthesis screening BI Today Z12.31 - Encounter for screening mammogram for malignant neoplasm of breast XR DEXA axial skeleton Today M81.0 - Age-related osteoporosis without current pathological fracture, M85.80 - Other specified disorders of bone density and structure, unspecified site Pneumococcal 20 Immunization Today Z23 - Encounter for immunization Medications: New solifenacin (Vesicare) 5 mg PO DAILY 30 tabs 3RF N39.3 - Stress incontinence (female) (male) Quality Reporting (2019) Depression/Bipolar (159/160/161/177) PHQ-9: Total score: 2 Coding Level of Care Code Medicare Subsequent (G0439) Diagnoses Medicare annual wellness visit, subsequent Z00.00 GERD (gastroesophageal reflux disease) K21.9 Osteopenia, unspecified location M85.80 Osteopenia location: unspecified Generalized anxiety disorder F41.1 Undifferentiated connective tissue disease M35.9 Impaired fasting blood sugar R73.01 Hypercholesterolemia E78.00 Breast cancer screening by mammogram Z12.31 Stress incontinence N39.3 Additional Codes PHQ-9 - 18675 - PHQ-9 Billing: Yes ([id number])
== END 2024-08-31 14:14 | disposition home or self-care (01) ==
LOC: HO.HMCH 12:54
PROVIDERS: PCP Internal Medicine; Visit Provider Internal Medicine
DX: Z00.00 Encounter for general adult medical examination without abnormal findings (principal); K21.9 Gastro-esophageal reflux disease without esophagitis; M85.80 Other specified disorders of bone density and structure, unspecified site; F41.1 Generalized anxiety disorder; M35.9 Systemic involvement of connective tissue, unspecified; R73.01 Impaired fasting glucose; E78.00 Pure hypercholesterolemia, unspecified; Z12.31 Encounter for screening mammogram for malignant neoplasm of breast; N39.3 Stress incontinence (female) (male); Z23 Encounter for immunization

== ENCOUNTER → 2024-08-31 12:54 | Outpatient (BNVA) | payer MEDICARE, SELFPAY | PROVIDERS: PCP Internal Medicine; Visit Provider Internal Medicine | DX: Z00.00 Encounter for general adult medical examination without abnormal findings (principal); Z23 Encounter for immunization; K21.9 Gastro-esophageal reflux disease without esophagitis; M85.80 Other specified disorders of bone density and structure, unspecified site; F41.1 Generalized anxiety disorder; M35.9 Systemic involvement of connective tissue, unspecified; R73.01 Impaired fasting glucose; E78.00 Pure hypercholesterolemia, unspecified; N39.3 Stress incontinence (female) (male) | CPT/HCPCS: 90471; 90677; 96127 ==

== ENCOUNTER 2024-10-26 13:36 | Outpatient (REF) | payer MEDICARE, SELFPAY ==
--- NOTE | ~2024-10-26 | MM_ITS ---
EXAMINATION: DXA BONE DENSITY AXIAL HISTORY: M81.0 - Age-related osteoporosis without current pathological fracture TECHNIQUE: [employer] Dual energy absorptiometry (DEXA) of the lumbar spine, total left hip, and femoral neck was performed. COMPARISON: Comparison is made with the prior examination dated 11/21/2020. FINDINGS: The bone mineral density of the lumbar spine is 0.911 g/cm2, corresponding to a T-score of -2.1, and a Z-score of -0.2. This is indicative of osteopenia. This represents a BMD change of -4.9% compared to the prior exam. This is not statistically significant. The bone mineral density of the left total hip is 0.765 g/cm2, corresponding to a T-score of -1.9, and a Z-score of -0.4. This is indicative of osteopenia. This represents a BMD change of -5.4% compared to the prior exam. This is statistically significant. The bone mineral density of the left femoral neck is 0.672 g/cm2, corresponding to a T-score of -2.6, and a Z-score of -0.9. This is indicative of osteoporosis. This represents a BMD change of -3.7% compared to the prior exam. MM/XR DEXA axial skeleton IMPRESSION: Based on bone mineral density, and according to World Health Organization (WHO) criteria, the diagnosis is consistent with osteoporosis. Statistically, 68% of repeat scans fall within 1 SD (+/- 0.010 g/cm2 for AP spine L1-L4) and 1 SD (+/- 0.012 g/cm2 for femur total) [employer] is a trademark of the [employer]'s [place] for Metabolic Bone Disease, a World Health Organization (WHO) Collaborating Center. Electronically signed by: Austen Cook MD 10/26/2024 02:30 PM EDT
--- NOTE | ~2024-10-26 | MM_ITS ---
EXAMINATION: MM SCREENING DIGITAL BREAST TOMOSYNTHESIS, BILATERAL CLINICAL INFORMATION: Screening. Asymptomatic. COMPARISON: Mammography: Comparison is made with available priors TECHNIQUE: Digital breast mammography with tomosynthesis is performed in both the craniocaudal and mediolateral oblique views along with computer-aided detection (CAD). FINDINGS: There are scattered areas of fibroglandular density (ACR BI-RADS breast composition Category b). There are no significant masses, abnormal calcifications, or other abnormalities. MM/MM tomosynthesis screening BI IMPRESSION: No mammographic evidence of malignancy. ASSESSMENT: BI-RADS BI-RADS 1 - Negative RECOMMENDATION: Routine annual mammography screening. 1 year F/U This examination should not preclude the clinical evaluation of a suspicious palpable abnormality. This patient's information was entered into a reminder system with a target due date for their next mammogram. Electronically signed by: Nat Stafford DO 11/07/2024 09:04 PM EDT
== END 2024-10-26 13:37 | disposition home or self-care (01) ==
LOC: HO.MAMMO 13:36
PROVIDERS: PCP Internal Medicine; Visit Provider Internal Medicine
DX: Z12.31 Encounter for screening mammogram for malignant neoplasm of breast (principal); M81.0 Age-related osteoporosis without current pathological fracture; M85.80 Other specified disorders of bone density and structure, unspecified site
CPT/HCPCS: 77063; 77067; 77080

== ENCOUNTER → 2024-10-26 13:45 | Outpatient (BNV) | payer MEDICARE, SELFPAY | PROVIDERS: PCP Internal Medicine; Visit Provider Radiology Diagnostic Radiology | DX: E28.39 Other primary ovarian failure (principal) | CPT/HCPCS: 77080 ==

== ENCOUNTER 2025-02-25 09:22 | Outpatient (REF) | payer MEDICARE, SELFPAY ==
[2025-02-25 11:06] LABS: Alanine Aminotransferase 23 U/L (0-31); Albumin Level 4.5 g/dL (3.5-5.0); Alkaline Phosphatase 94 U/L (39-117); Anion Gap 12 (12-20); Aspartate Amino Transferase 20 U/L (5-31); Blood Urea Nitrogen 15 mg/dL (9-16); Calcium 9.6 mg/dL (8.4-10.2); Carbon Dioxide 27 mmol/L (22-29); Chloride 105 mmol/L (96-108); Cholesterol 222 mg/dL (<200); Estimated Glomerular Filt Rate > 60; HDL Cholesterol 66 mg/dL (>40); Potassium 4.0 mmol/L (3.3-5.1); Sodium 140 mmol/L (135-145); Total Protein 7.3 g/dL (6.5-8.0); Triglycerides 80 mg/dL (<150)
== END 2025-02-25 09:23 | disposition home or self-care (01) ==
LOC: HO.LAB 09:22
PROVIDERS: PCP Internal Medicine; Visit Provider Internal Medicine
DX: E78.00 Pure hypercholesterolemia, unspecified (principal); Z13.1 Encounter for screening for diabetes mellitus
CPT/HCPCS: 36415; 80053; 80061; 83036

== ENCOUNTER 2025-03-03 12:48 | Outpatient (AMB) | payer MEDICARE, SELFPAY ==
[2025-03-03 12:54] VITALS: BP 106/68; PULSE 71; O2SAT 98; BMI 22.5
--- NOTE | 2025-03-03 12:54 | A.OFFPC_ITS ---
Vital Signs 03/03/25 12:54 Height 5 ft 2 in Weight 123 lb BMI 22.5 BP 106/68 Blood Pressure Location Lt brachial Position Sitting Pulse 71 Pulse Source Pulse Oximeter Pulse Oximetry (%) 98 Oxygen Delivery Method Room Air Intake Visit Reasons: gerd Allergies No Known Allergies Allergy (Verified 03/03/25 12:55) Medication List - Last Reconciled 03/03/25 by Ayla Manzano MD calcium citrate-vitamin D3 315 mg-6.25 mcg (250 unit) (Citracal + Vitamin D Maximum) 1 tab PO DAILY lorazepam 0.5 mg PO BID PRN 5 days valacyclovir 2,000 mg (2 x 1 gram) PO BID 1 day Tobacco use date assessed: 06/14/24 Fall risk assessment: No Falls in past year Last assessed Fall Risk: 03/03/25 Dental Screening Dental Screen Date: 06/14/24 HPI gerd HPI Details right heart cath 02/2025 due to reduction of pulmonary diffusion cath done no pulm hypertension. [facility] Medical History (Updated 03/03/25 @ 13:19 by Ayla Manzano MD) Osteopenia Breast cancer screening by mammogram Annual physical exam Bacterial conjunctivitis of right eye Cellulitis of face Cervical cancer screening Back pain Dysuria Sinusitis Anxiety UTI (urinary tract infection) Kidney function abnormal Abdominal cramping NIKO positive Hiatal hernia GERD (gastroesophageal reflux disease) Surgical History (Updated 05/07/24 @ 12:54 by BLANK Terry) Hx of colonoscopy History of esophagogastroduodenoscopy (EGD) History of myomectomy Status post hysteroscopic polypectomy Family History Father Hypertension Mother Hypertension Paternal Grandmother Stroke Daughter Healthy female Social History Housing: House Alcohol intake: never Patient Tobacco Use Status: Never used Tobacco Tobacco use type: Cigarette e-Cigarette/Vaping Use: Never Used Second Hand Smoke Exposure: No service: No Current occupational status: employed Current occupational exposures/hazards: No Cognitive needs: No Hearing needs: No Vision needs: No Questionnaire PHQ-9 Over the last 2 weeks, how often have you been bothered by any of the following problems? 1. Little interest or pleasure in doing things: not at all 2. Feeling down, depressed, or hopeless: not at all 3. Trouble falling or staying asleep, or sleeping too much: several days 4. Feeling tired or having little energy: several days 5. Poor appetite or overeating: not at all 6. Feeling bad about yourself - or that you are a failure or have let yourself or your family down: not at all 7. Trouble concentrating on things, such as reading the newspaper or watching television: not at all 8. Moving or speaking so slowly that other people could have noticed. Or the opposite - being so fidgety or restless that you have been moving around a lot more than usual: not at all 9. Thoughts that you would be better off or of hurting yourself in some way: not at all Total score: 2 Depression Screening Interpretation: Positive Depression Screening Done: Yes Source: Developed by Drs. Austen Long, Viviane Velez, Ja Moseley and colleagues, with an educational savannah from [employer]. Thrive Questionnaire Date Thrive assessed: 02/24/25 I am a: Patient What is your living situation today?: I have a steady place to live Within the past 12 months, did the food you bought not last and you didn't have the money to get more?: Never true Within the past 12 months, did you worry whether your food would run out before you got money to buy more?: Never true Do you have trouble paying for medicines?: No Do you have trouble getting transportation to medical appointments?: No Do you have trouble paying your heating and electricity bill?: No Do you have trouble taking care of your child, family member or friend?: No Do you have trouble with day-to-day activities such as bathing, preparing meals, shopping, managing finances, etc.?: No Are you currently unemployed and looking for a job?: No Are you interested in more education?: No Please select the resources that you would like help with: None Currently or been in a relationship where the following occur: No concerns reported THRIVE Score: 0 AUDIT C Alcohol Use Questionnaire (AUDIT-C) 1. How often do you have a drink containing alcohol?: Never 3. How often do you have six or more drinks on one occasion?: Never Total Score: 0 MAGGIE-7 AMB Questionnaire MAGGIE-7 Date MAGGIE - 7 assessed: 06/14/24 Feeling nervous, anxious, or on edge: 1 = Several days Not being able to stop or control worryin = Not at all Worrying too much about different things: 0 = Not at all Trouble relaxin = Not at all Being so restless that it is hard to sit still: 0 = Not at all Becoming easily annoyed or irritable: 0 = Not at all Feeling afraid as if something awful might happen: 0 = Not at all Total MAGGIE-7 score (0-4 normal; 5-9 mild; 10-14 moderate; 15-21 severe): 1 Source: Developed by Drs. Austen Long, Viviane Velez, Ja Moseley and colleagues, with an educational savannah from [employer]. Physical exam (Primary Care) Vital Signs: Last Vital Signs Pulse 71 03/03/25 12:54 BP 106/68 03/03/25 12:54 Pulse Ox 98 03/03/25 12:54 Oxygen Delivery Method Room Air 03/03/25 12:54 BMI result Body Mass Index 22.5 Tobacco/Smoking Status: Tobacco use Status Tobacco use date assessed 06/14/24 03/03/25 12:56 Patient Tobacco Use Status Never used Tobacco 03/03/25 12:56 Tobacco use type Cigarette 03/03/25 12:56 e-Cigarette/Vaping Use Never Used 03/03/25 12:56 PHQ-9: PHQ-9 Score PHQ-9: Total score 2 03/03/25 13:32 Depression Screening Interpretation: Positive Thrive Assessment: Date of Thrive Assessment Date Thrive assessed 02/24/25 03/03/25 12:56 Currently or been in a relationship where the following occur: No concerns reported Const General: alert; No acute distress Eyes Conjunctivae: conjunctivae normal Resp Auscultation: clear to auscultation bilaterally Cardio Rate: regular rate Rhythm: regular rhythm GI Inspection: Yes normal to inspection Extrem General: Yes normal to inspection and No edema Office Procedures Flu Questionnaire Does the patient have a severe egg allergy?: No Does the patient have severe life threatening allergies?: No Does the patient have a fever or illness today?: No Has the patient ever had Guillain-[place] Syndrome?: No Has the patient ever had any past reaction to a flu shot?: No Immunizations Fluarix [id number] (PF) 45 mcg (15 mcg x 3)/0.5 mL IM syringe Performing Provider: Ayla Manzano MD [facility] Administered by: Thania King CMA on 03/03/25 13:32 Dose Route Admin Location Dispensed Lot Number Expiration Date NDC Mission Support Specialist 0.5 mL IM Left Deltoid 0.5 mL [id number] 10/25/25 [id number] [employer] VIS Given Date VIS Provided VIS Publication Date 03/03/25 Single Vaccine 24 Eligibility Eligibility Date Funding Source Not [facility] Eligible 03/03/25 Private Coding Level of Care Code Est Pt Level 4 (80969) Complex EM visit Add On G2211 Diagnoses Hypercholesterolemia E78.00 Impaired fasting blood sugar R73.01 Osteoporosis M81.0 GERD (gastroesophageal reflux disease) K21.9 CREST (calcinosis, Raynaud's phenomenon, esophageal dysfunction, sclerodactyly, telangiectasia) M34.1 Generalized anxiety disorder F41.1 Nasal congestion R09.81 Assessment & Plan Assessment & Plan (1) Hypercholesterolemia: Code(s): E78.00 - Pure hypercholesterolemia, unspecified Category: Medical Plan: Avoid fried foods, chicken skin, eggs, butter margarine, pastries and meat. Be it pork or beef they have a lot of cholesterol on diet (2) Impaired fasting blood sugar: Code(s): R73.01 - Impaired fasting glucose Category: Medical Plan: Decrease the amount of carbohydrate intake, pasta, bread, rice and potatoes are all sugar and that is aside from all the sweet stuff, remember that fruits are good but they are Sweet also. Blood work this time is good (3) Osteoporosis: Comment: October 2024 Code(s): M81.0 - Age-related osteoporosis without current pathological fracture Category: Medical Plan: Discussed about calcium and vitamin-D and medications that can help with bone (4) GERD (gastroesophageal reflux disease): Comment: This is a questionable diagnosis as she does not have heartburn and her symptoms of dysphagia were never improved with PPI or H2 therapy. aeb Code(s): K21.9 - Gastro-esophageal reflux disease without esophagitis Category: Medical Plan: Avoid the foods that causes that usually spicy foods, tomato products, juices, coffee, soda and foods that your sensitive to. After eating do not lie down, allow 3-4 hours before in lie down. And keep the head of bed above 30 degrees to avoid the acid from going up. (5) CREST (calcinosis, Raynaud's phenomenon, esophageal dysfunction, sclerodactyly, telangiectasia): Comment: Aubrey Z[facility] Dr. Code(s): M34.1 - CR(E)ST syndrome Category: Medical Plan: Continue to be monitored (6) Generalized anxiety disorder: Code(s): F41.1 - Generalized anxiety disorder Category: Medical Plan: Continue with lorazepam as needed (7) Nasal congestion: Code(s): R09.81 - Nasal congestion Category: Medical Plan History of Present Illness The patient is a 64-year-old female presenting for a follow-up and wellness visit. The patient has a history of CREST syndrome and is followed by a press washer, Dr. Gardner, and a braid cutter at [facility], Dr. Flores. Last week, she underwent a right heart catheterization to evaluate for pulmonary arterial hypertension, which can be associated with her condition; the results showed normal pressures at rest. However, the performing physician recommended a repeat catheterization with exercise, and the patient has an appointment with Dr. Flores tomorrow to discuss this. The patient also reports generalized fat and muscle loss, which she believes is related to her connective tissue disease. The patient has a diagnosis of osteoporosis, identified on a bone density scan. She has had discussions about calcium, vitamin D, and potential medications for her bone health. Regarding hypercholesterolemia, recent labs showed an LDL of 140 mg/dL, which is an improvement. She acknowledges her diet still includes saturated fats but is pleased with the progress from minor changes. Her family history is notable for a paternal grandmother who had a stroke in her 70s. For impaired glucose tolerance, her fasting blood sugar was 99 mg/dL and her hemoglobin A1c was 5.6%, both within normal limits. She denies a diagnosis of diabetes. The patient reports significant nasal obstruction, feeling blocked often and unable to get a deep breath, and has a known deviated septum. She uses Claritin- D for relief. For health maintenance, her last colonoscopy was in 2018, and she had a mammogram today. She is up-to-date on her pneumonia vaccine and recently completed the two-dose shingles vaccine series, after which she experienced transient muscle aches and feverishness. Health Maintenance The patient received her influenza vaccine during the visit. She is advised to schedule a follow-up for her colonoscopy, last performed in 2017, and a routine vision exam. She will be scheduled for a follow-up physical, with an order for pre-visit blood work. Social History - Diet: The patient is making a concerted effort to improve her diet to lower cholesterol by cutting out items like packaged cookies, though she acknowledges still consuming butter and cream. - Family History: Her father is living at age 96, and her mother at 92. - Family Composition: She has three grandchildren under the age of four, with another on the way. Review of Systems - Constitutional: Reports generalized body aches at different times and generalized loss of fat and muscle. - Respiratory: Reports feeling unable to get a good deep breath, which she attributes to nasal blockage. - Cardiovascular: Denies chest pain or pain radiating to the arm. - Gastrointestinal: Reports a recent episode of stomach ache and vomiting. - Musculoskeletal: Reports resolved pain in a finger that lasted for two weeks. - Eyes: Denies current vision problems but notes it has been a couple of years since her last exam. - ENT: Reports feeling very blocked in her nose quite often. - Skin: Reports hands get very cold, which she attributes to fat loss. - All other systems not mentioned were otherwise negative. Physical Exam - Chest: Lungs clear to auscultation. - Abdomen: Non-tender to palpation, with no pain elicited in the flank areas. - Extremities: No swelling noted in the legs. Results - Labs (February 25): Stable renal function, normal electrolytes, and normal blood sugar. - Lipid Panel (February 25): LDL cholesterol of 140 mg/dL. - Glycemic Control (February 25): Fasting blood sugar 99 mg/dL; Hemoglobin A1c 5.6%. - Complete Blood Count (May): Normal. - Right Heart Catheterization (recent): Showed normal pressures, ruling out pulmonary hypertension at rest. - Mammogram: Performed today. - Colonoscopy: Last done in 2017. - Bone Density Scan (October 2024): Showed osteoporosis. Plan Patient was informed and verbally consented to the use of an ambient scribe for clinic note documentation during this visit. 1. Hypercholesterolemia The patient's LDL cholesterol has improved to 140 mg/dL with minor dietary changes. She expresses motivation to make further concerted efforts to reduce saturated fats in her diet. The plan is to continue with dietary management. Lab work will be ordered prior to her next physical to monitor progress. 2. Crest Syndrome The patient recently underwent a right heart catheterization to rule out pulmonary arterial hypertension, which showed normal pressures at rest. She has a follow-up appointment tomorrow with her braid cutter, Dr. Flores, to discuss the results and the recommendation for a repeat catheterization with exercise. The condition will continue to be monitored. 3. Nasal Obstruction The patient reports significant and frequent nasal blockage with a known deviated septum, causing a sensation of being unable to take a deep breath. To further evaluate for underlying causes such as polyps or retention cysts, a CT scan of the sinuses will be ordered. 4. Osteoporosis A discussion was held regarding management options, including calcium and vitamin D supplementation and medications available to improve bone health. 5. Impaired Glucose Tolerance Recent labs show a fasting glucose of 99 mg/dL and HbA1c of 5.6%, which are reassuring and within normal limits. The plan is to continue monitoring with lifestyle and diet. 6. Generalized Anxiety Disorder The patient will continue her current regimen of lorazepam as needed. 7. Gastroesophageal Reflux Disease The patient's reflux symptoms will continue to be monitored. Discussion Notes I reviewed the patient's recent lab results, noting the improvement in her LDL cholesterol but acknowledging it remains elevated. We discussed the roles of diet and genetics, and I supported her goal to make further dietary modifica tions. I also reviewed her right heart catheterization results, confirming the good news that pressures were normal at rest. I acknowledged her confusion regarding the recommendation for a repeat study with exercise and affirmed her plan to discuss this with her specialist. In response to her symptoms of significant nasal obstruction, I explained that a CT scan of the sinuses would be ordered to investigate for potential causes like polyps. Regarding her concern about lipodystrophy, I informed her that specific diagnostic blood tests for this are not commonly performed. I reassured her that the small, non-red bump at her catheterization site is likely scar tissue and not a concern. We discussed immunizations, and the patient agreed to receive her flu shot today. I provided anticipatory guidance regarding the current increase in COVID- 19 cases, advising her to remain careful. A plan was made for her next physical exam, which will include pre-visit lab work to track her progress. Patient Instructions - Continue to work on dietary changes to lower your cholesterol by reducing saturated fats. - Please schedule and complete the CT scan of your sinuses that has been ordered to check for causes of your nasal blockage. - Follow up with your copy center specialist, Dr. Flores, tomorrow to discuss your recent heart catheterization results. - You received your annual flu shot today. - Remember to take your calcium and vitamin D for bone health. - Continue to take lorazepam only as needed for anxiety. - We will arrange for blood work to be done before your next physical exam. - Please continue to be careful, as COVID-19 cases are currently on the rise. Orders: Orders CT sinus wo IV con Today R09.81 - Nasal congestion Free T4 (Free Thyroxine) 6 Months M34.1 - CR(E)ST syndrome Hemoglobin A1c 6 Months M34.1 - CR(E)ST syndrome Thyroid Stimulating Hormone 6 Months M34.1 - CR(E)ST syndrome UA CC w/rflx Micro + Cult 6 Months M34.1 - CR(E)ST syndrome, R30.0 - Dysuria C Reactive Protein 6 Months M34.1 - CR(E)ST syndrome Influenza [id number] Immunization Today Z23 - Encounter for immunization Comprehensive Met. Panel 6 Months M34.1 - CR(E)ST syndrome Lipid Panel 6 Months E78.00 - Pure hypercholesterolemia, unspecified, M34.1 - CR(E)ST syndrome Vitamin B12 and Folate 6 Months M34.1 - CR(E)ST syndrome Vitamin D 25-OH Total 6 Months M34.1 - CR(E)ST syndrome Erythrocyte Sedimentation Rate 6 Months M34.1 - CR(E)ST syndrome Medications: New esomeprazole magnesium (Nexium) 20 mg PO DAILY 30 caps 0RF omega 2-xxz-bif-fish oil 60-90-500 mg (Fish Oil) 1 cap PO DAILY 30 caps 0RF
--- OUTSIDE RECORDS SUMMARY | 2025-03-03 15:46 | XMS_ITS | Encounter Summary ---
Author Organization [facility] Address [address] [place] [phone] Phone Care Team Providers Care Senior Medical Billing Specialist Name Role Phone Ayla Manzano MD Primary Care Provider [phone] Encounter Details Date Type Department Care Team (Late st Contact Info) Description 12/10/2022 Procedure Pass [facility] [address] [place] [address] Social History Tobacco Use Types Packs/Day Years Used Date Smoking Tobacco: Never Smokeless Tobacco: Never Alcohol Use Standard Drinks/Week Comments Not Currently 0 (1 standard drink = 0.6 oz pur e alcohol) Education Answer Date Recorded Are you interested in more education? Not on bryce e 08/23/2022 Are you concerned about learning? Not on file 08/23/2022 No 08/23/2022 No 08/23/2022 Digital Access Answer Date Recorded No 09/21/2022 No 09/21/2022 Reliable internet access at home? Not on file 09/21/2022 Device with a working camera? Not on file Comments Unknown Sex and Gender Information Value Date Recorded Sex Assigned at Female 01/11/2019 8:37 AM EDT Legal Sex Female 1:59 PM EST Gender Identity Female 01/11/2019 8:37 AM EDT Sexual Orientation Straight 01/11/2019 8: 37 AM EDT documented as of this encounter Plan of Treatment Upcoming Encounters Date Type Department Care Team (Late st Contact Info) Description 03/04/2025 10:50 AM EST Office Visit [facility] [address] [place] [address] Jeannette Luis MD 75 [facility], [facility] [place] [address] [email or web address] 06/09/2025 8:30 AM EST Office Visit [facility] [address] [facility] [place] [address] [place] [address] Arina Gardner MD 10 [facility] 2nd [place] [address] [email or web address] documented as of this encounter Visit Diagnoses Not on filedocumented in this encounter Care Teams Senior Medical Billing Specialist Relationship Specialty Start Date End Date Ayla Manzano MD [address] [place] [address] Drive [address] [place] [phone] PCP - General Internal Medicine 01/11/19 documented as of this encounter Additional Source Comments The information contained in this document represents components of the legal health record. It is not the complete legal health record.[facility]
--- OUTSIDE RECORDS SUMMARY | 2025-03-03 15:46 | XMS_ITS | Encounter Summary ---
Author Organization [facility] Address [address] [place] [phone] Phone Care Team Providers Care Freight Separator Name Role Phone Ayla Manzano MD Primary Care Provider Encounter Details Date Type Department Care Team (Late Contact Info) Description 03/10/2023 Procedure Pass [facility], Ct Scan - [address] [address] Social History Tobacco Use Types Packs/Day Years [...] Encounters Date Type Department Care Team (Late Contact Info) Description 03/04/2025 10:50 AM EST Office Visit [facility] [address] [place] [address] Jeannette Luis MD 75 [facility], [facility]3 [place] [address] [email or web address] 06/09/2025 8:30 AM EST Office Visit [facility] Allergy [facility] Critical [facility] 10 [facility] [place] [address] [place] [address] Arina Gardner MD 10 [facility] 2nd [place] [address] [email or web address] documented as of this encounter Visit Diagnoses Not on filedocumented in this encounter Care Teams Freight Separator Relationship Specialty Start Date End Date Jose Juan, Ayla Bagley MD [address] [place] [address] Drive [address] [place] [phone] PCP - General Internal Medicine 01/11/19 documented as of this encounter Additional Source Comments The information contained in this document represents components of the legal health record. It is not the complete legal health record.[facility]
--- OUTSIDE RECORDS SUMMARY | 2025-03-03 15:46 | XMS_ITS | Encounter Summary ---
Author Organization [facility] Address [address] [place] [phone] Phone Care Team Providers Care Information Technology Administrator Name Role Phone Ayla Manzano MD Primary Care Provider [phone] Encounter Details Date Type Department Care Team (Late st Contact Info) Description 06/28/2024 Procedure Pass [facility] Cardiac Talent Acquisition Partner [address] [place] [address] Social History Tobacco Use Types Packs/Day Years [...] Description 03/04/2025 10:50 AM EST Office Visit [facility] [address] [place] [address] Jeannette Luis MD 75 [facility] [place] [facility], [facility]3 [place] [address] [email or web address] 06/09/2025 8:30 AM EST Office Visit [facility] 10 [facility] [place] [address] [place] [address] Arina Gardner MD 10 [facility] 2nd [place] [address] [email or web address] documented as of this encounter Visit Diagnoses Not on filedocumented in this encounter Care Teams Information Technology Administrator Relationship Specialty Start Date End Date Ayla Manzano MD [address] [place] [address] [address] [place] [phone] PCP - General Internal Medicine 01/11/19 documented as of this encounter Additional Source Comments The information contained in this document represents components of the legal health record. It is not the complete legal health record.[facility]
--- OUTSIDE RECORDS SUMMARY | 2025-03-03 15:46 | XMS_ITS | Encounter Summary ---
Author Organization Formerly [facility] Address [address] [place] [address] Phone Care Team Providers Care Drywall Hanger Name Role Phone Ayla Manzano MD Primary Care Provider [phone] Encounter Details Date Type Department Care Team (Late Contact Info) Description 01/14/2022 Transcribe Orders [facility] PFT Lab 30 [place] [address] Arina Gardner MD [address] [place] [address] [email or web address] Social History Tobacco Use Types Packs/Day Years Used Date Smoking Tobacco: Never Smokeless Tobacco: Never Alcohol Use Standard Drinks/Week Comments Not Currently 0 (1 standard drink = 0.6 oz pur e alcohol) Comments Unknown Sex and Gender Information Value Date Recorded Sex Assigned at Female 01/11/2019 8:37 AM EDT Legal Sex Female 1:59 PM EST Gender Identity Female 01/11/2019 8:37 AM EDT Sexual Orientation Straight 01/11/2019 8: 37 AM EDT documented as of this encounter Plan of Treatment Upcoming Encounters Date Type Department Care Team (Late Contact Info) Description 03/04/2025 10:50 AM EST Office Visit [facility] Cardiovascular Clinic 70 [place] [address] Jeannette Luis MD [address] [phone] [email or web address] 06/09/2025 8:30 AM EST Office Visit [facility] Pulmonary, Allergy and Critical Care Medicine 10 [facility] [place] [address] Arina Gardner MD 10 [facility] 2nd [place] [address] documented as of this encounter Visit Diagnoses Not on filedocumented in this encounter Care Teams Drywall Hanger Relationship Specialty Start Date End Date Po, Ayla Bagley MD [address] [place] [address] [place] [phone] PCP - General Internal Medicine 01/11/19 documented as of this encounter Additional Source Comments The information contained in this document represents components of the legal health record. It is not the complete legal health record.[facility]
--- OUTSIDE RECORDS SUMMARY | 2025-03-03 15:46 | XMS_ITS | Encounter Summary ---
Author Organization [facility] Address [address] [place] [address] Phone Care Team Providers Care Form Builder Name Role Phone Ayla Manzano MD Primary Care Provider [phone] Encounter Details Date Type Department Care Team (Late Contact Info) Description 04/09/2022 Procedure Pass [facility] MR Imaging, Brown [address] [place] [address] Social History Tobacco Use Types Packs/Day Years [...] Description 03/04/2025 10:50 AM EST Office Visit [facility] Cardiovascular Clinic 70 [place] [address] Jeannette Luis MD [address] [address] [email or web address] 06/09/2025 8:30 AM EST Office Visit [facility] Pulmonary, Allergy and Critical Care Medicine 10 [facility] [place] [address] Arina Gardner MD 10 [facility] 2nd [place] [address] [email or web address] documented as of this encounter Visit Diagnoses Not on filedocumented in this encounter Care Teams Form Builder Relationship Specialty Start Date End Date Ayla Manzano MD [address] [place] [address] [place] [phone] PCP - General Internal Medicine 01/11/19 documented as of this encounter Additional Source Comments The information contained in this document represents components of the legal health record. It is not the complete legal health record.[facility]
--- OUTSIDE RECORDS SUMMARY | 2025-03-03 15:46 | XMS_ITS | Encounter Summary ---
Author Organization [facility] Address [address] [place] [address] Phone Care Team Providers Care Talent Acquisition Partner Name Role Phone Ayla Manzano MD Primary Care Provider [phone] Encounter Details Date Type Department Care Team (Late st Contact Info) Description 02/22/2025 Procedure Pass [facility] Cardiac Fraud Analyst 75 [place] [address] Social History Tobacco Use Types Packs/Day Years [...] Description 03/04/2025 10:50 AM EST Office Visit [facility] 70 [place] [address] Jeannette Luis MD 75 [facility], [facility] Clinics3 [place] [address] [email or web address] 06/09/2025 8:30 AM EST Office Visit [facility] Pulmonary, Allergy and Critical Care Medicine 10 [facility] [place] [address] Arina Gardner MD 10 [facility] 2nd [place] [address] [email or web address] documented as of this encounter Visit Diagnoses Not on filedocumented in this encounter Care Teams Talent Acquisition Partner Relationship Specialty Start Date End Date Ayla Manzano MD [address] [place] [address] [address] [place] [phone] PCP - General Internal Medicine 01/11/19 documented as of this encounter Additional Source Comments The information contained in this document represents components of the legal health record. It is not the complete legal health record.[facility]
--- OUTSIDE RECORDS SUMMARY | 2025-03-03 15:46 | XMS_ITS | Encounter Summary ---
Author Organization [facility] Address [address] [place] [address] Phone Care Team Providers Care Assisted Living Manager Name Role Phone Ayla Manzano MD Primary Care Provider [phone] Encounter Details Date Type Department Care Team (Late Contact Info) Description 12/10/2022 Procedure Pass [facility], Ct Scan - [address] [address] Social History Tobacco Use Types Packs/Day Years [...] Office Visit [facility] 70 [place] [address] Jeannette Luis MD 75 [facility], [facility] Clinics3 [place] [address] [email or web address] 06/09/2025 8:30 AM EST Office Visit [facility] Pulmonary, Allergy and Critical Care Medicine 10 [facility] [place] [address] Arina Gardner MD 10 [facility] 2nd [place] [address] [email or web address] documented as of this encounter Visit Diagnoses Not on filedocumented in this encounter Care Teams Assisted Living Manager Relationship Specialty Start Date End Date Jose Juan, Ayla Bagley MD [address] [place] [address] Drive [address] [place] [phone] PCP - General Internal Medicine 01/11/19 documented as of this encounter Additional Source Comments The information contained in this document represents components of the legal health record. It is not the complete legal health record.[facility]
--- OUTSIDE RECORDS SUMMARY | 2025-03-03 15:46 | XMS_ITS | Encounter Summary ---
Author Organization [facility] Address [address] [place] [address] Phone Care Team Providers Care Communication Electronic Technician Name Role Phone Ayla Manzano MD Primary Care Provider [phone] Encounter Details Date Type Department Care Team (Late st Contact Info) Description 01/01/2022 Procedure Pass [facility], Ct Scan - [address] [address] Social History Tobacco Use Types Packs/Day Years [...] Description 03/04/2025 10:50 AM EST Office Visit [facility] Cardiovascular Clinic [address] [place] [address] Jeannette Luis MD [address] [place] [address] [email or web address] 06/09/2025 8:30 AM EST Office Visit [facility] Pulmonary, Allergy and Critical Care Medicine 10 [facility] [place] [address] Arina Gardner MD 10 [facility] 2nd [place] [address] [email or web address] documented as of this encounter Visit Diagnoses Not on filedocumented in this encounter Care Teams Communication Electronic Technician Relationship Specialty Start Date End Date Po, Ayla Bagley MD [address] [place] [address] [place] [phone] PCP - General Internal Medicine 01/11/19 documented as of this encounter Additional Source Comments The information contained in this document represents components of the legal health record. It is not the complete legal health record.[facility]
--- OUTSIDE RECORDS SUMMARY | 2025-03-03 15:46 | XMS_ITS | Encounter Summary ---
Author Organization [facility] Address [address] [place] [address] Phone Care Team Providers Care Refrigeration Brazer/Solderer Name Role Phone Ayla Manzano MD Primary Care Provider [phone] Encounter Details Date Type Department Care Team (Late st Contact Info) Description 03/16/2024 Procedure Pass [facility] Echo Lab 30 [place] [address] Social History Tobacco Use Types Packs/Day Years [...] Description 03/04/2025 10:50 AM EST Office Visit [facility] Cardiovascular Clinic [address] [place] [address] Jeannette Luis MD 75 [facility], [facility] Clinics3 [place] [address] [email or web address] 06/09/2025 8:30 AM EST Office Visit [facility] Pulmonary, Allergy and Critical Care Medicine 10 [facility] [place] [address] Arina Gardner MD 10 [facility] 2nd [place] [address] [email or web address] documented as of this encounter Visit Diagnoses Not on filedocumented in this encounter Care Teams Refrigeration Brazer/Solderer Relationship Specialty Start Date End Date Ayla Manzano MD [address] [place] [address] [address] [place] [phone] PCP - General Internal Medicine 01/11/19 documented as of this encounter Additional Source Comments The information contained in this document represents components of the legal health record. It is not the complete legal health record.[facility]
--- OUTSIDE RECORDS SUMMARY | 2025-03-03 15:46 | XMS_ITS | Encounter Summary ---
Author Organization [facility] Address [address] [place] [address] Phone Care Team Providers Care Retail Sales Consultant Name Role Phone Ayla Manzano MD Primary Care Provider [phone] Encounter Details Date Type Department Care Team (Late st Contact Info) Description 12/03/2022 Procedure Pass [facility] MR Imaging, Brown [address] [place] [address] Social History Tobacco Use Types Packs/Day Years [...] Description 03/04/2025 10:50 AM EST Office Visit [facility] Cardiovascular Clinic 70 [place] [address] Jeannette Luis MD 75 [facility], [facility] Clinics3 [place] [address] [email or web address] 06/09/2025 8:30 AM EST Office Visit [facility] Pulmonary, Allergy and Critical Care Medicine 10 [facility] [place] [address] Arina Gardner MD 10 [facility] 2nd [place] [address] [email or web address] documented as of this encounter Visit Diagnoses Not on filedocumented in this encounter Care Teams Retail Sales Consultant Relationship Specialty Start Date End Date Ayla Manzano MD [address] [place] [address] Drive [address] [place] [phone] PCP - General Internal Medicine 01/11/19 documented as of this encounter Additional Source Comments The information contained in this document represents components of the legal health record. It is not the complete legal health record.[facility]
--- OUTSIDE RECORDS SUMMARY | 2025-03-03 15:46 | XMS_ITS | Encounter Summary ---
Author Organization [facility] Address [address] [place] [address] Phone Care Team Providers Care Early Childhood Lead Teacher Name Role Phone Ayla Manzano MD Primary Care Provider [phone] Encounter Details Date Type Department Care Team (Late Contact Info) Description 09/19/2021 Procedure Pass [facility] Echo Lab 30 [place] [address] Social History Tobacco Use Types Packs/Day Years [...] Description 03/04/2025 10:50 AM EST Office Visit [facility] Cardiovascular Clinic 70 [place] [address] Jeannette Luis MD [address] [place] [address] [email or web address] 06/09/2025 8:30 AM EST Office Visit [facility] Pulmonary, Allergy and Critical Care Medicine 10 [place] [address] Arina Gardner MD 10 [facility] 2nd [place] [address] [email or web address] documented as of this encounter Visit Diagnoses Not on filedocumented in this encounter Care Teams Early Childhood Lead Teacher Relationship Specialty Start Date End Date Ayla Manzano MD [address] [place] [address] [place] [phone] PCP - General Internal Medicine 01/11/19 documented as of this encounter Additional Source Comments The information contained in this document represents components of the legal health record. It is not the complete legal health record.[facility]
== END 2025-03-03 13:40 | disposition home or self-care (01) ==
LOC: HO.HMCH 12:49
PROVIDERS: PCP Internal Medicine; Visit Provider Internal Medicine
DX: E78.00 Pure hypercholesterolemia, unspecified (principal); R73.01 Impaired fasting glucose; M81.0 Age-related osteoporosis without current pathological fracture; M34.1 CR(E)ST syndrome; K21.9 Gastro-esophageal reflux disease without esophagitis; F41.1 Generalized anxiety disorder; R09.81 Nasal congestion; Z23 Encounter for immunization

== ENCOUNTER → 2025-03-03 12:48 | Outpatient (BNVA) | payer MEDICARE, SELFPAY | PROVIDERS: PCP Internal Medicine; Visit Provider Internal Medicine | DX: K21.9 Gastro-esophageal reflux disease without esophagitis (principal); E78.00 Pure hypercholesterolemia, unspecified; R73.01 Impaired fasting glucose; M81.0 Age-related osteoporosis without current pathological fracture; M34.1 CR(E)ST syndrome; F41.1 Generalized anxiety disorder; R09.81 Nasal congestion; Z23 Encounter for immunization | CPT/HCPCS: 90471; 90656; 99212 ==